=== PATIENT | male | born 1960 | race Caucasian/White ===

== ENCOUNTER 2016-05-12 17:42 | Emergency (ER) | payer BC ==
[2016-05-12] MEDS: PROPARACAINE 0.5% OPHTH DROPS 15 ML BTL BOTH EYES STA (18:21)
--- NOTE | 2016-05-12 18:21 | ED ---
Eye Problem HPI - General Chief complaint: Eye Problems Stated complaint: Trouble with his vision Time Seen by Provider: 05/12/16 18:01 Source: patient, RN notes reviewed Mode of arrival: ambulatory Limitations: no limitations - History of Present Illness Initial comments: Patient is a 56-year-old male presents emergency room for evaluation of blurriness of vision of b/l eyes. Patient states he woke up around 6:30 this morning and it appeared that the room was full of smoke. Patient denies any eye pain. Patient denies loss of vision. Patient states he scheduled an appointment with his primary care provider today and they did a glucose check and then sent him home. Patient states he got home and he still experiencing blurry vision so he thought he should be further evaluated. Patient states he recently had an eye exam at the end of last year with no issues. Patient does state he wears glasses. 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 Patient denies sitting in front of a computer all day or straining his eyes. Patient does state he has a family history of glaucoma. Patient denies any significant past medical history including high blood pressure or diabetes. Patient denies any trauma to his eyes. Patient states his eyes feel slightly irritated every time he blinks. Patient denies headache, dizziness or complete loss of vision. - Related Data Home Medications Medication Instructions Recorded Confirmed Ibuprofen [Motrin] 600 mg PO Q6HR PRN 05/12/16 05/12/16 Allergies Allergy/AdvReac Type Severity Reaction Status Date / Time No Known Allergies Allergy Verified 05/12/16 18:28 Review of Systems ROS Statement: Those systems with pertinent positive or pertinent negative responses have been documented in the HPI. ROS Other: All systems not noted in ROS Statement are negative. Past Medical History Past Medical History: No Reported History Additional Past Medical History / Comment(s): excema History of Any Multi-Drug Resistant Organisms: MRSA Date of last positivie culture/infection: 06/27/15 MDRO Source:: RIGHT HAND Past Surgical History: Appendectomy, Back Surgery Past Psychological History: No Psychological Hx Reported Smoking Status: Current every day smoker Past Alcohol Use History: None Reported Past Drug Use History: None Reported General Exam - General Exam Comments Initial Comments: Sitting in exam room in no acute distress. Limitations: no limitations General appearance: alert, in no apparent distress Head exam: Present: atraumatic, normocephalic, normal inspection Eye exam: Present: normal appearance, PERRL, EOMI Pupils: Present: normal accommodation Expanded Eyelids: Normal Inspection: Bilateral Pupils: Regular, Round: Bilateral, Reactive: Bilateral Sclera/Conjunctival: Injection: Bilateral Visual acuity (R) = 20/: 70 Visual acuity (L) = 20/: 70 With correction: Yes IOP (R) in mmH IOP (L) in mmH IOP measured with: [facility] ENT exam: Present: normal exam Neck exam: Present: normal inspection Respiratory exam: Present: normal lung sounds bilaterally. Absent: respiratory distress Cardiovascular Exam: Present: regular rate, normal rhythm, normal heart sounds Extremities exam: Present: normal inspection Back exam: Present: normal inspection Neurological exam: Present: alert, oriented X3, CN II-XII intact, normal gait Psychiatric exam: Present: normal affect, normal mood Skin exam: Present: warm, dry, intact, normal color. Absent: rash Course Vital Signs 05/12/16 17:48 Temperature 98.1 F Pulse Rate 100 Respiratory 20 Rate Blood Pressure 154/84 O2 Sat by Pulse 100 Oximetry Medical Decision Making - Medical Decision Making Patient is a 56-year-old male presents emergency room for evaluation of a blurriness of vision of bilateral eyes. IOP within normal limits of bilateral eyes. No uptake noted on evaluation with what slammed in the nursing dye. Visual acuity 20/[address] Miles. Dr. Miles spoke with Dr. Cabrera who came in and evaluated patient. Slitlamp examination significant for posterior cataracts (per Dr. Cabrera). Patient will follow-up with Dr. Cabrera tomorrow in his office. Return parameters discussed. Disposition Clinical Impression: Posterior subcapsular cataract, bilateral Disposition: HOME SELF-CARE Condition: Good Instructions: Cataracts (ED) Additional Instructions: Please follow-up with Dr. Cabrera tomorrow. If any new symptom arises or symptoms worsen return to ER as soon as possible. Referrals: Rosette Cabrera MD [STAFF PHYSICIAN] - 1-2 days Time of Disposition: 19:24
[2016-05-12 19:35] VITALS: BP 145/81; PULSE 95; RESP 18; TEMP 98
--- NOTE | 2016-05-13 07:24 | CONS ---
DATE OF CONSULTATION: 05/12/2016 CHIEF COMPLAINT: Blurred vision. HISTORY OF PRESENT ILLNESS: Mr. Dunlap is a 56-year-old male who presents with decreased vision that he noted this morning in both eyes. The patient denies eye pain, flashes, floaters, or other ophthalmic symptoms. The onset is gradual and moderate. Patient still has reasonably good vision; however, he states that it is blurrier today than it has been previously. REVIEW OF SYSTEMS: He denies headache, dizziness, or nausea and vomiting. PAST MEDICAL HISTORY: None. MEDICATIONS: Patient reports recent injections; however, he does not know what the medication was. ALLERGIES: No known drug allergies. PAST SURGICAL HISTORY: Appendectomy. SOCIAL HISTORY: Current every day smoker. Denies alcohol and drug use. OPHTHALMIC EXAM: Visual acuity is 20/70 in the right eye and 20/70 in the left eye. Intraocular pressure is 15 in both eyes. The lids are within normal limits in both eyes. Conjunctiva and sclera are white and within normal limits. Cornea is clear in both eyes. The anterior chambers are within normal limits. There is a significant posterior subcapsular cataract in both eyes. This is significant. Posterior examination is essentially within normal limits though limited due to the density of the cataract. ASSESSMENT AND PLAN: Posterior subcapsular cataract, both eyes. The patient has a significant cataract that likely has progressed quickly and is causing his symptoms. The cataracts are significant and there are no other notable ophthalmic findings that explain his poor vision. The patient would likely benefit from evaluation in the office and potentially from cataract surgery as an outpatient. The patient was given our office details then I recommend followup in the office for further evaluation of his cataracts. Thank you for allowing me to participate in this patient's care.
== END 2016-05-12 19:35 | disposition home or self-care (01) ==
LOC: EC 17:42
DX: H25.043 Posterior subcapsular polar age-related cataract, bilateral (principal); F17.200 Nicotine dependence, unspecified, uncomplicated; Z83.511 Family history of glaucoma
CPT/HCPCS: 99283

== ENCOUNTER 2016-08-08 19:24 | Emergency (ER) | payer BC ==
[2016-08-08 19:39] VITALS: BP 142/74; PULSE 94; RESP 18; TEMP 99.1
[2016-08-08] MEDS ORDERED: DIPH,PERTUS(ACELL)TETVAC-LF 0.5 ML VIAL IM ONE (19:43)
[2016-08-08] MEDS ORDERED: CEPHALEXIN 500MG STARTER PACK 4 CAP BTL PO STA (19:44)
--- NOTE | 2016-08-08 19:54 | XR ---
EXAMINATION TYPE: XR finger RT DATE OF EXAM: 08/08/2016 7:50 PM COMPARISON: NONE HISTORY: Timpson TECHNIQUE: 3 views FINDINGS: There is a metal fishhook foreign body in the soft tissues at the tip of the distal phalanx of the little finger right hand. There is no fracture. Joint spaces are normal. IMPRESSION: Timpson foreign body.
--- NOTE | 2016-08-08 20:13 | ED ---
General Adult HPI - General Chief complaint: Skin/Abscess/Foreign Body Stated complaint: fish hook in finger Time Seen by Provider: 08/08/16 19:40 Source: patient, RN notes reviewed, old records reviewed Mode of arrival: ambulatory Limitations: no limitations - History of Present Illness Initial comments: This is a pleasant 56-year-old male presenting to the emergency department with chief complaint of a fish hook being stuck in his right fifth finger pad. Patient reports that he has full range of motion. Patient reports that he tried to pull deficient consult was too painful. Patient states these had no idea when his left tetanus shot was.Patient denies any recent fever, chills, shortness of breath, chest pain, back pain, abdominal pain, nausea vomiting, numbness or tingling, dysuria or hematuria, constipation or diarrhea, headaches or visual changes, or any other current symptoms - Related Data Previous Rx's Medication Instructions Recorded Cephalexin [Keflex] 500 mg PO Q8HR #21 cap 08/08/16 Allergies Allergy/AdvReac Type Severity Reaction Status Date / Time No Known Allergies Allergy Verified 08/08/16 19:36 Review of Systems ROS Statement: Those systems with pertinent positive or pertinent negative responses have been documented in the HPI. ROS Other: All systems not noted in ROS Statement are negative. Past Medical History Past Medical History: No Reported History Additional Past Medical History / Comment(s): excema History of Any Multi-Drug Resistant Organisms: MRSA Date of last positivie culture/infection: 06/27/15 MDRO Source:: RIGHT HAND Past Surgical History: Appendectomy, Back Surgery Past Psychological History: No Psychological Hx Reported Smoking Status: Current every day smoker Past Alcohol Use History: None Reported Past Drug Use History: None Reported General Exam - General Exam Comments Initial Comments: Amalia 56-year-old male. No acute distress. Limitations: no limitations General appearance: alert, in no apparent distress Head exam: Present: atraumatic, normocephalic, normal inspection Eye exam: Present: normal appearance, PERRL, EOMI. Absent: scleral icterus, conjunctival injection, periorbital swelling ENT exam: Present: normal exam, mucous membranes moist Neck exam: Present: normal inspection. Absent: tenderness, meningismus, lymphadenopathy Respiratory exam: Present: normal lung sounds bilaterally. Absent: respiratory distress, wheezes, rales, rhonchi, stridor Cardiovascular Exam: Present: regular rate, normal rhythm, normal heart sounds. Absent: systolic murmur, diastolic murmur, rubs, gallop, clicks GI/Abdominal exam: Present: soft, normal bowel sounds. Absent: distended, tenderness, guarding, rebound, rigid Extremities exam: Present: normal inspection, full ROM, normal capillary refill , other (Patient has evidence of a fishhook in the distal pad of the fifth finger. Patient does have full range of motion.). Absent: tenderness, pedal edema, joint swelling, calf tenderness Back exam: Present: normal inspection Neurological exam: Present: alert, oriented X3, CN II-XII intact Psychiatric exam: Present: normal affect, normal mood Skin exam: Present: warm, dry, intact, normal color. Absent: rash Course Vital Signs 08/08/16 19:37 Temperature 99.1 F Pulse Rate 94 Respiratory 18 Rate Blood Pressure 142/74 O2 Sat by Pulse 98 Oximetry Procedures - Nerve Block Consent Obtained: verbal consent Local Anesthetic Used: Lidocaine 1% Amount of anesthesia used: 3 Side: right Nerve Blocks: digital (Fifth distal phalanx) Procedure Successful: Yes Patient Tolerated Procedure: well, no complications Medical Decision Making - Medical Decision Making This is a pleasant 56-year-old male presenting to the emergency department with chief complaint of a fish hook being stuck in his right fifth finger pad. Patient reports that he has full range of motion. Patient reports that he tried to pull deficient consult was too painful. Patient states these had no idea when his left tetanus shot was. Patient's wound was cleaned with Betadine. Patient was given a digital nerve block. The finger was anesthetized, and the fishhook was removed by pushing it further through the pad. I did remove the soo of the fishhook with pliers and then pulled the remaining part of her back out through the entry point. Patient was given is updated tetanus vaccination. Patient will be started on Keflex. The wound was thoroughly irrigated. Discussed monitoring any signs of infection. Patient agrees to treatment plan and will comply. Return parameters were discussed. - Radiology Data Radiology results: report reviewed Metal fishhook foreign body in the soft tissues of the distal phalanx of the little finger and the right hand. No fracture. Joint spaces are normal. Disposition Clinical Impression: Fish hook injury of finger of right hand Disposition: HOME SELF-CARE Condition: Good Instructions: Soft Tissue Foreign Body (ED) Additional Instructions: Monitor for any signs of infection, including redness swelling and drainage. A complete entire antibiotic prescription. Return to the emergency department if any alarming signs or symptoms occur. Prescriptions: Cephalexin [Keflex] 500 mg PO Q8HR #21 cap Referrals: Lawrence Layne MD [Primary Care Provider] - 1-2 days Time of Disposition: 20:13
== END 2016-08-08 20:18 | disposition home or self-care (01) ==
LOC: EC 19:24
DX: S60.456A Superficial foreign body of right little finger, initial encounter (principal); Z23 Encounter for immunization; F17.200 Nicotine dependence, unspecified, uncomplicated; W22.8XXA Striking against or struck by other objects, initial encounter
CPT/HCPCS: 10120; 90471; 90715; 99284

== ENCOUNTER 2017-05-03 06:57 | Emergency (ER) | payer BC, OTHER ==
--- NOTE | 2017-05-03 08:23 | ED ---
Upper Extremity HPI - General Chief Complaint: Extremity Injury, Upper Stated Complaint: IHS-wrist injury Time Seen by Provider: 05/03/17 08:10 Source: patient, RN notes reviewed Mode of arrival: ambulatory Limitations: no limitations - History of Present Illness Initial Comments: This is a 56-year-old male presents emergency Department chief complaint left wrist pain. 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 He states it's about shoulder height and he has to pull to the left. Patient states that he felt that he sprained his wrist at the time finish out her shift but the symptoms are getting worse. He complains of pain along the ulnar aspect. He denies any paresthesias. He is [id number]. Patient states she's never had any issues like this in the past. He does state that do takes a great deal of strength to move some brakes. Patient states that the pain is worse with any movement and is better with support - Related Data Home Medications Medication Instructions Recorded Confirmed Ibuprofen [Motrin Ib] 600 mg PO TID PRN 05/03/17 05/03/17 Previous Rx's Medication Instructions Recorded Acetaminophen-Codeine 300-30mg 1 tab PO Q4H PRN #20 tablet 05/03/17 [Tylenol #3] Ibuprofen [Motrin] 600 mg PO Q8HR PRN #30 tab 05/03/17 Allergies Allergy/AdvReac Type Severity Reaction Status Date / Time No Known Allergies Allergy Verified 05/03/17 07:52 Review of Systems ROS Statement: Those systems with pertinent positive or pertinent negative responses have been documented in the HPI. ROS Other: All systems not noted in ROS Statement are negative. Past Medical History Past Medical History: No Reported History Additional Past Medical History / Comment(s): excema History of Any Multi-Drug Resistant Organisms: MRSA Date of last positivie culture/infection: 09/23/16 MDRO Source:: ARM Past Surgical History: Appendectomy, Back Surgery Past Psychological History: No Psychological Hx Reported Smoking Status: Current every day smoker Past Alcohol Use History: None Reported Past Drug Use History: None Reported General Exam Limitations: no limitations General appearance: alert, in no apparent distress Head exam: Present: atraumatic, normocephalic, normal inspection Eye exam: Present: normal appearance, PERRL, EOMI. Absent: scleral icterus, conjunctival injection, periorbital swelling Respiratory exam: Present: normal lung sounds bilaterally. Absent: respiratory distress, wheezes, rales, rhonchi, stridor Cardiovascular Exam: Present: regular rate, normal rhythm, normal heart sounds. Absent: systolic murmur, diastolic murmur, rubs, gallop, clicks Extremities exam: Present: other (Left wrist there is tenderness over the ulnar aspect, pain with ulnar deviation, pronation supination along with flexion extension neurovascular intact there is no tenderness in the proximal forearm) Neurological exam: Present: reflexes normal. Absent: motor sensory deficit Skin exam: Present: warm, dry, intact, normal color, rash (Eczema type rash noted on the hands) Course Vital Signs 05/03/17 07:07 Temperature 97.4 F L Pulse Rate 77 Respiratory 17 Rate Blood Pressure 138/82 O2 Sat by Pulse 100 Oximetry Procedures - Orthopedic Splinting/Casting Injury #1 Side: left Upper Extremity Injury Location: short arm, wrist Upper Extremity Immobilizer: volar splint, synthetic pre-padded splint Additional Comments: Neurovascular intact before and after procedure Medical Decision Making - Medical Decision Making 56-year-old male presented for left wrist pain. X-rays reviewed show no acute fracture. I do have concern for ligamentous injury. Patient was splinted in an OCL splint in neutral position he'll be follow-up with orthopedics he was discharged with anti-inflammatories and pain medication. Return parameters were discussed Disposition Clinical Impression: Left wrist sprain, Injury of ulnar collateral ligament of left wrist Disposition: HOME SELF-CARE Condition: Stable Instructions: Wrist Injury (ED) Additional Instructions: Please return to the Emergency Department if symptoms worsen or any other concerns. Prescriptions: Acetaminophen-Codeine 300-30mg [Tylenol #3] 1 tab PO Q4H PRN #20 tablet PRN Reason: pain Ibuprofen [Motrin] 600 mg PO Q8HR PRN #30 tab PRN Reason: Pain Referrals: Lawrence Layne MD [Primary Care Provider] - 1-2 days Time of Disposition: 09:13
[2017-05-03 09:20] VITALS: BP 120/76; PULSE 87; RESP 16; TEMP 97.5
--- NOTE | 2017-05-03 09:26 | XR ---
EXAMINATION TYPE: XR wrist complete LT DATE OF EXAM: 05/03/2017 CLINICAL HISTORY: Left wrist pain TECHNIQUE: Frontal, lateral and oblique images of the left wrist are obtained. COMPARISON: None FINDINGS: There is no acute fracture/dislocation evident in the left wrist. There is advanced arthro cecily of the first metacarpal phalangeal joint demonstrated is bony proliferation, opposing surface s clerosis and joint space narrowing.. The overlying soft tissue appears unremarkable. IMPRESSION: 1. There is no acute fracture or dislocation in the left wrist. 2. Advanced arthropathy of the first metacarpal phalangeal joint likely related to osteoarthrosis.
== END 2017-05-03 09:25 | disposition home or self-care (01) ==
LOC: EC 06:57
DX: S63.502A Unspecified sprain of left wrist, initial encounter (principal); R21 Rash and other nonspecific skin eruption; F17.200 Nicotine dependence, unspecified, uncomplicated; Z86.14 Personal history of Methicillin resistant Staphylococcus aureus infection; X50.0XXA Overexertion from strenuous movement or load, initial encounter; Y93.89 Activity, other specified; Y92.69 Other specified industrial and construction area as the place of occurrence of the external cause; Y99.0 Civilian activity done for income or pay
CPT/HCPCS: 29125; 99283

== ENCOUNTER → 2021-05-21 | Outpatient (CLI) | payer BC ==
--- NOTE | 2021-05-21 13:33 | CT ---
EXAMINATION TYPE: CT abdomen pelvis w con DATE OF EXAM: 05/21/2021 COMPARISON: None HISTORY: micro hematuria CT DLP: 1879 mGycm Automated exposure control for dose reduction was used. TECHNIQUE: Helical acquisition of images from the lung bases through the pelvis have been completed. CONTRAST: Performed with Oral Contrast and with IV Contrast, patient injected with 100 mL of Isovue 300. FINDINGS: LUNG BASES: No significant abnormality is appreciated. AORTA: Atheromatous changes are present extending into the iliac vasculature. LIVER/GB: Low density within the liver likely due to hepatic steatosis, gallbladder shows a dependent calculus in the neck region PANCREAS: No significant abnormality is seen. SPLEEN: No significant abnormality is seen. ADRENALS: No significant abnormality is seen. KIDNEYS: Probable cortical cyst present at the midpole of the right kidney measuring 1 cm. REPRODUCTIVE ORGANS: Prostate is enlarged and shows associated calcification BOWEL: Abnormal thickening of the sigmoid colon is present, there is some surrounding inflammatory c hange, some fat apparently insinuates itself adjacent to the superior margin of the sigmoid colon, co ernesto image 52, axial image 72 is scattered diverticular changes. FREE AIR: No Free Air visible. ASCITES: None visible. PELVIC ADENOPATHY: None visualized. RETROPERITONEAL ADENOPATHY: No Retroperitoneal Adenopathy visible. URINARY BLADDER: Air urine level is present within the urinary bladder, correlate for history of ins trumentation. OSSEOUS STRUCTURES: No significant abnormality is seen. IMPRESSION: AIR IS PRESENT WITHIN THE URINARY BLADDER IS DESCRIBED, THERE IS PROSTATE ENLARGEMENT. CORRELATE FOR DIVERTICULITIS, FOLLOW-UP IS RECOMMENDED TO EXCLUDE UNDERLYING COLONIC MASS, CONSIDER BOWEL SURVEILLA NCE IF THIS HAS NOT BEEN PERFORMED. DIVERTICULOSIS. Cholelithiasis. Hepatic steatosis.
== END | disposition home or self-care (01) ==
LOC: RADCTMAIN 09:58
PROVIDERS: ATTEND Urology
DX: N40.0 Benign prostatic hyperplasia without lower urinary tract symptoms (principal); K57.90 Diverticulosis of intestine, part unspecified, without perforation or abscess without bleeding; K80.20 Calculus of gallbladder without cholecystitis without obstruction; K76.0 Fatty (change of) liver, not elsewhere classified
CPT/HCPCS: 74177; Q9967

== ENCOUNTER → 2021-06-27 | Outpatient (CLI) | payer BC ==
[2021-06-27 14:03] LABS: HCT 46.7 % (39.6-50.0); HGB 14.8 g/dL (13.0-17.0); MCH 29.3 pg (27.0-32.0); MCHC 31.7 g/dL (32.0-37.0); MCV 92.5 fL (80.0-97.0); Mean Platelet Volume 8.8 fL (9.5-12.2); NRBC Per 100 WBC 0 /100 WBCS (0.0-0.0); Platelet Count 398 X 10*3/uL (140-440); RBC 5.05 X 10*6/uL (4.40-5.60); RDW 13.8 % (11.5-14.5)
[2021-06-27 14:34] LABS: Anion Gap 13.5 mmol/L (10.00-18.00); Carbon Dioxide 22.5 mmol/L (20.0-27.5); Potassium 4.3 mmol/L (3.5-5.5)
== END | disposition home or self-care (01) ==
LOC: LABPAT 07:02
PROVIDERS: ATTEND Surgery
DX: Z01.812 Encounter for preprocedural laboratory examination (principal); L98.8 Other specified disorders of the skin and subcutaneous tissue
CPT/HCPCS: 36415; 80051; 85027; 93005

== ENCOUNTER 2021-07-03 11:49 | Day surgery (SDC) | payer BC ==
[2021-07-01 10:46] VITALS: BMI 29.9
[~2021-07-03 11:49] MED LIST: LACTATED RINGERS 1,000 ML IV SCH; LIDOCAINE 1% (10MG/ML) FOR IV START INTRADERMA PRN
[2021-07-03 12:37] VITALS: TEMP 97.1
[2021-07-03] MEDS ORDERED: PROPOFOL 10 MG/ML 20 ML VIAL IV ONE (13:16)
[2021-07-03] MEDS ORDERED: LIDOCAINE 2% INJ 20 MG/ML (2 ML VIAL) ONE (13:16)
--- NOTE | 2021-07-03 13:37 | P.GSHP ---
History of Present Illness H&P Date: 07/03/21 Chief Complaint: Colovesical fistula 61-year-old male here today for endoscopy. Please refer to recent history and physical dictated in the office record and also for tomorrow's surgery date. Patient with recent findings of colovesical fistula. Being scheduled for low anterior resection. No prior colonoscopies. Past Medical History Past Medical History: No Reported History Additional Past Medical History / Comment(s): ECZEMA. 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- POSSIBLE HOLE IN BLADDER-POSSIBLE FISTULA History of Any Multi-Drug Resistant Organisms: MRSA Date of last positivie culture/infection: 09/23/16 MDRO Source:: ARM Past Surgical History: Appendectomy, Back Surgery Additional Past Surgical History / Comment(s): CYSTOSCOPY, BILAT CATARACTS REMOVED WITH LENS IMPLANTS, BONE CHIP REMOVED FROM LT ELBOW Past Anesthesia/Blood Transfusion Reactions: No Reported Reaction Past Psychological History: No Psychological Hx Reported Past Alcohol Use History: None Reported Past Drug Use History: None Reported - Past Family History Mother Family Medical History: No Reported History Medications and Allergies Home Medications Medication Instructions Recorded Confirmed Type Acetaminophen [Tylenol Extra 1,000 mg PO Q8HR PRN 07/01/21 07/03/21 History Strength] Etodolac [Lodine] 200 mg PO DAILY 07/01/21 07/03/21 History Allergies Allergy/AdvReac Type Severity Reaction Status Date / Time No Known Allergies Allergy Verified 07/03/21 12:25 Surgical - Exam Vital Signs Temp Pulse Resp BP Pulse Ox 97.1 F L 118 H 16 109/74 97 07/03/21 12:35 07/03/21 12:35 07/03/21 12:35 07/03/21 12:35 07/03/21 12:35 Physical exam: General: Well-developed, well-nourished HEENT: Normocephalic, sclerae nonicteric Abdomen: Nontender, nondistended Extremities: No edema Neuro: Alert and oriented Assessment and Plan (1) Colovesical fistula Narrative/Plan: Will proceed with colonoscopy at this time. Current Visit: Yes Status: Acute Code(s): N32.1 - VESICOINTESTINAL FISTULA SNOMED Code(s): 06005925
--- NOTE | 2021-07-03 13:39 | P.PCN ---
Date of Procedure: 07/03/21 Procedure(s) Performed: PREOPERATIVE DIAGNOSIS: Colovesical fistula, diverticulitis POSTOPERATIVE DIAGNOSIS: Sigmoid colon polyp, diverticulitis PROCEDURE: Colonoscopy with snare polypectomy ANESTHESIA: MAC SURGEON: Anthony Celeste M.D. SPECIMENS: Polyp ENDOSCOPIC PROCEDURE: The patient was placed on the endoscopy table in the left decubitus position. The Olympus colonoscope was inserted into the anus and passed under direct visualization to the base of the cecum. The appendiceal orifice was visualized. From that point the scope was slowly withdrawn inspecting all surfaces carefully. There were no neoplastic inflammatory or polypoid lesions throughout the cecum, ascending, transverse, and descending colon. At 45 cm in the proximal sigmoid or distal descending colon there was a small polyp that was removed using the snare with cautery technique. In the sigmoid colon there was significant diverticulosis with tortuosity erythema and luminal stiffness consistent with diverticulitis. This was likely the site of recent fistulization. The rectum appeared normal. Digital rectal examination was normal. The patient was taken to the recovery room in stable condition per anesthesia guidelines. RECOMMENDATIONS: Await biopsy results. Proceed with low anterior resection tomorrow for colovesical fistula.
[2021-07-03 13:42] VITALS: BP 110/64; PULSE 105; RESP 18
== END 2021-07-03 14:17 | disposition home or self-care (01) ==
LOC: ORWHC2ENDO 11:49
PROVIDERS: ATTEND Surgery
DX: D12.5 Benign neoplasm of sigmoid colon (principal); K57.32 Diverticulitis of large intestine without perforation or abscess without bleeding; N32.1 Vesicointestinal fistula; L30.9 Dermatitis, unspecified; Z86.14 Personal history of Methicillin resistant Staphylococcus aureus infection; Z90.49 Acquired absence of other specified parts of digestive tract; Z98.890 Other specified postprocedural states; Z79.1 Long term (current) use of non-steroidal anti-inflammatories (NSAID); Z87.891 Personal history of nicotine dependence; Z98.42 Cataract extraction status, left eye; Z98.41 Cataract extraction status, right eye; Z96.1 Presence of intraocular lens
CPT/HCPCS: 88305; 45385; J2704; J2001

== ENCOUNTER 2021-07-04 09:40 | Inpatient (IN) | payer BC ==
[~2021-07-04 09:40] MED LIST changes: +ACETAMINOPHEN TAB 500 MG TAB PO PRN; +ALVIMOPAN 12 MG CAPSULE PO PRN; +DEXAMETHASONE SOD PHOSPHATE 4 MG/ML 1 ML VIAL IV ONE; +HEPARIN SODIUM,PORCINE/PF 5,000 UNIT/0.5 ML SYRINGE SQ PRN; +HYDROmorphone 0.5 MG/0.5 ML SYRINGE IVP PRN; -LACTATED RINGERS 1,000 ML IV SCH; -LIDOCAINE 1% (10MG/ML) FOR IV START INTRADERMA PRN; +MIDAZOLAM 2 MG/2 ML VIAL IV PRN; +ONDANSETRON 4 MG/2 ML VIAL IVP ONE; +SCOPOLAMINE 1 MG/72 HR PATCH TRANSDERM ONE; +metroNIDAZOLE-NS PMX 500 MG in SALINE 1 100ML.BAG IVPB PRN
[2021-07-04] MEDS: LACTATED RINGERS 1,000 ML IV SCH (10:50)
[2021-07-04 11:01] LABS: Partial Thromboplastin Time 27.5 sec (22.0-30.0); Prothrombin Time 11.1 sec (9.0-12.0)
[2021-07-04] MEDS ORDERED: fentaNYL (PF) 50 MCG/ML 2 ML AMP IVP ONE (11:20)
[2021-07-04] MEDS ORDERED: MIDAZOLAM 2 MG/2 ML VIAL IVP ONE (11:20)
[2021-07-04] MEDS ORDERED: diphenhydrAMINE 50 MG/ML 1 ML VIAL IVP PRN (12:06)
[2021-07-04] MEDS ORDERED: MORPHINE SULFATE 2 MG/ML SYRINGE IVP PRN (12:06)
[2021-07-04] MEDS ORDERED: NALOXONE 0.4 MG/ML 1 ML VIAL IV PRN (12:06)
[2021-07-04] MEDS ORDERED: NALBUPHINE 10 MG/ML (1 ML AMP) IV PRN (12:06)
--- NOTE | 2021-07-04 12:12 | P.ANPRN ---
Procedure Note - Anesthesia - Epidural/Spinal Epidural Continuous Time Out Performed: Yes Date of Procedure: 07/04/21 Procedure Start Time: 11:19 Procedure Stop Time: 11:27 Location of Patient: PreOp Indication: Acute Post-Operative Pain, Requested by Surgeon (deanne) Sedation Type: Sedate with meaningful contact maintained Preparation: Sterile Dressing Number of Attempts: 1 Position: Sitting Catheter Depth at Skin (cm): 8 Catheter: Indwelling Needle Guage: 18 Injectate: Test Dose Lidocaine1.5% w/1:200,000 epi (5cc) Narrative: sterile protocol. 1 attempt. negative test dose. Patient tolerated procedure well Blood Aspirated: No Pain Paresthesia on Injection Noted: No Events: Uneventful and Well Tolerated
[2021-07-04] MEDS ORDERED: LACTATED RINGERS 1,000 ML IV ONE ×3 (13:30→14:58)
[2021-07-04] MEDS ORDERED: METOCLOPRAMIDE 5 MG/ML 2 ML VIAL IVP PRN (15:46)
[2021-07-04] MEDS: ROPIVACAINE 250 MG, fentaNYL (PF) 1,250 MCG in SODIUM CHLORIDE 0.9% 175 ML EPIDURAL PRN (15:55)
--- NOTE | 2021-07-04 15:56 | P.OP ---
Date of Procedure: 07/04/21 Procedure(s) Performed: PREOPERATIVE DIAGNOSIS: Colovesical fistula POSTOPERATIVE DIAGNOSIS: Same, active diverticulitis PROCEDURE: Low anterior sigmoid resection, mobilization splenic flexure, partial omentectomy SURGEON: Roula EBL: 100 mL ANESTHESIA: General COMPLICATIONS: None OPERATIVE PROCEDURE: Patient place in the operative table in the supine position. The patient was placed under general anesthesia. The patient was then placed in lithotomy. The abdomen was prepped and draped in usual sterile fashion. A vertical incision was made extending from the infraumbilical location to the suprapubic location. The fascia was divided as well. The Bookwalter retractor was utilized. The proximal sigmoid colon was markedly inflamed for a distance of approximately 15-20 cm. This was mobilized medially. It was quickly realized that the bowel proximal to the area of active diverticulitis would not reach the sacral promontory without mobilization of the splenic flexure. The descending colon was mobilized. Incision was lengthened to the subxiphoid location. The patient had a very large torso that required significant incision length in order to mobilize the splenic flexure up properly. This was done using a combination of blunt dissection electrocautery and the LigaSure device. Once we had adequate length the colon was divided immediately proximal to the thickened segment and a longitudinal manner using electrocautery. A 29 EEA anvil was advanced into the lumen of the sigmoid colon and milked proximally. The bowel was then divided using a linear 75 stapler and the anvil was brought out adjacent to the staple line. A 3-0 silk pursestring suture was placed around the anvil at that location. The mesentery was divided using the LigaSure device. Dissection took place down to the proximal rectum where the tenia was noted to splay out. The proximal rectum was divided using t he contour stapler. The specimen was passed off the field at that point. A small area of bleeding along the staple line was controlled laterally using a [id number] 3-0 GI silk suture. No signs of bleeding at either staple line was noted after irrigation. The EEA stapler was then inserted into the anus and brought up to the staple line. The obturator was brought out just anterior to the staple line. The 2 portions of the stapler were connected to one another and subsequently tightened and fired. The bowel was clamped proximal to the anastomosis. The rigid sigmoidoscope was utilized to fill the anastomotic site nicely with air. There was saline in the pelvis at this time. No evidence of leak was seen. The abdomen was irrigated with saline. No bleeding was seen. I did remove a portion of the omentum that was somewhat ischemic appearing were it had been dissected away from the distal transverse colon. The anastomosis was inspected and appeared quite viable. There was no tension on the anastomosis at this point. The liver, stomach, visualized colon, and small bowel appeared normal. The midline fascia was then reapproximated using 3 separate double- stranded #1 PDS sutures. The subcutaneous tissues were closed using 3-0 Vicryl sutures. The skin was then closed using tala. Sterile dressings were then applied. DISPOSITION: Stable to recovery room
[2021-07-04] MEDS: PIPERACILLIN-TAZOBACTAM 3.375 GM in SODIUM CHLORIDE 0.9% 100 ML IVPB SCH (17:58)
[2021-07-04] MEDS: D5-0.45% NACL WITH KCL 20MEQ/L 1,000 ML IV SCH (17:58)
[2021-07-04] MEDS: HEPARIN SODIUM,PORCINE/PF 5,000 UNIT/0.5 ML SYRINGE SQ SCH (20:41)
[2021-07-04] MEDS: FAMOTIDINE 20 MG/2 ML VIAL IV SCH (20:42)
[2021-07-05] MEDS: PIPERACILLIN-TAZOBACTAM 3.375 GM in SODIUM CHLORIDE 0.9% 100 ML IVPB SCH ×3 (01:39→17:57)
[2021-07-05] MEDS: D5-0.45% NACL WITH KCL 20MEQ/L 1,000 ML IV SCH ×3 (04:56→17:57)
[2021-07-05] MEDS: HEPARIN SODIUM,PORCINE/PF 5,000 UNIT/0.5 ML SYRINGE SQ SCH ×3 (04:56→21:19)
[2021-07-05] MEDS: LACTATED RINGERS 1,000 ML IV SCH (08:05)
[2021-07-05] MEDS: ALVIMOPAN 12 MG CAPSULE PO SCH ×2 (08:12→21:18)
[2021-07-05] MEDS: FAMOTIDINE 20 MG/2 ML VIAL IV SCH ×2 (08:13→23:53)
[2021-07-05 08:39] LABS: Basophils # (A) 0.02 X 10*3/uL (0.00-0.10); Basophils % (A) 0.1 %; Eosinophils # (A) 0 X 10*3/uL (0.04-0.35); Eosinophils % (A) 0 %; HGB 13.4 g/dL (13.0-17.0); Immature Grans, Automated 0.5 %; Lymphocytes # (A) 0.97 X 10*3/uL (0.90-5.00); Lymphocytes % (A) 6.3 %; MCH 29.7 pg (27.0-32.0); MCHC 31.9 g/dL (32.0-37.0); MCV 93.1 fL (80.0-97.0); Mean Platelet Volume 9.2 fL (9.5-12.2); Monocytes # (A) 1.35 X 10*3/uL (0.20-1.00); Monocytes % (A) 8.8 %; NRBC Per 100 WBC 0 /100 WBCS (0.0-0.0); Neutrophils # (A) 12.87 X 10*3/uL (1.80-7.70); Neutrophils % (A) 84.3 %; Platelet Count 364 X 10*3/uL (140-440); RBC 4.51 X 10*6/uL (4.40-5.60); RDW 13.7 % (11.5-14.5); WBC 15.28 X 10*3/uL (4.50-10.00)
[2021-07-05 09:02] LABS: African American GFR (CKD) 68.3 (60.0-200.0); Anion Gap 9.7 mmol/L (10.00-18.00); BUN/Creat Ratio 9.92 Ratio (12.00-20.00); Blood Urea Nitrogen 12.9 mg/dL (9.0-27.0); Calcium 9.2 mg/dL (8.7-10.3); Carbon Dioxide 24.3 mmol/L (20.0-27.5); Non-African American GFR(CKD) 58.9 (60.0-200.0); Potassium 4.5 mmol/L (3.5-5.5)
--- NOTE | 2021-07-05 09:14 | P.PN ---
Progress Note - Text Progress Note Date: 07/05/21 (903) Anesthesia Postop day #1 Status post low anterior resection with epidural day #2 Patient seen and examined. Doing well without complaint. VAS 0 out of 10. No nausea vomiting or pruritus. Ropivacaine 0.1% with fentanyl 5 mcg/mL at 10 mL per hour . Objective: Vital signs reviewed. Stable Lungs: Good chest excursion Abdomen: Appears nondistended Other: Epidural Site Intact without induration. Dressing intact Neuro: No apparent motor block. Sensory within normal limits. Assessment: Status post low anterior resection postop day 1 Plan: Continue current care with your medical management. Anticipate reevaluation tomorrow.
--- NOTE | 2021-07-05 11:31 | P.CONS ---
History of Present Illness - Reason for Consult Consult date: 07/05/21 Medical management - Chief Complaint Status post colon resection - History of Present Illness Patient is a 61-year-old male without significant past medical history, previous history of smoking and recently diagnosed colovesical fistula was admitted to the hospital for elective surgery. Patient underwent low anterior sigmoid resection, mobilization of splenic flexure and partial omentectomy. Recent CT of abdomen pelvis on 05/21/2021 showed areas present within the urinary bladder. There is prostate enlargement. Correlate for diverticulitis. Cholelithiasis and hepatic steatosis. Patient is s/p surgery and currently able to get up from the bed. No complaints of chest pain or shortness of breath. Patient is still on epidural. No fever no chills. No cough or sputum production.. No leg swelling. Denied any dizziness or lightheadedness. No nausea or vomiting. Laboratory data showed WBC 15.28 hemoglobin 13.4 and platelets 364 Sodium 136 potassium 4.5 chloride 102 bicarb is 24.3 BUN 12.9 creatinine 1.3 calcium 9.2. Review of Systems Constitutional: Patient denies any fever or chills . No generalized weakness or weight loss. Abdomen: Patient denied nausea vomiting and diarrhea and abdominal pain. Cardiovascular: Patient denies any chest pain or short of breath no palpitations. Respiratory: patient denied any cough or sputum production. No shortness of breath Neurologic: Patient denied any numbness or tingling headache. Musculoskeletal: Patient denies any complaints of joint swelling or deformity. Skin: Negative Psychiatric: Negative Endocrine: No heat or cold intolerance. No recent weight gain. Genitourinary: No dysuria or hematuria. All other 14 point ROS negative except the above Past Medical History Past Medical History: No Reported History Additional Past Medical History / Comment(s): ECZEMA. 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 Past Anesthesia/Blood Transfusion Reactions: No Reported Reaction Past Psychological History: No Psychological Hx Reported Smoking Status: Former smoker Past Alcohol Use History: None Reported Additional Past Alcohol Use History / Comment(s): QUIT SMOKING 2017 Past Drug Use History: None Reported - Past Family History Mother Family Medical History: No Reported History Medications and Allergies Home Medications Medication Instructions Recorded Confirmed Type Acetaminophen [Tylenol Extra 1,000 mg PO Q8HR PRN 07/01/21 07/04/21 History Strength] Etodolac [Lodine] 200 mg PO DAILY 07/01/21 07/04/21 History Allergies Allergy/AdvReac Type Severity Reaction Status Date / Time No Known Allergies Allergy Verified 07/04/21 10:05 Physical Exam Vitals: Vital Signs Temp Pulse Pulse Pulse Resp BP Pulse Ox 07/05/21 08:00 79 18 113/66 99 07/05/21 01:09 97.8 F 95 16 96/63 97 07/04/21 19:58 97.6 F 84 18 104/67 99 07/04/21 17:53 98.1 F 69 19 97/59 96 07/04/21 16:45 82 16 102/64 98 07/04/21 16:32 80 16 126/68 100 07/04/21 16:17 64 16 84/51 97 07/04/21 16:03 66 14 85/50 96 07/04/21 15:48 97.5 F L 72 16 84/53 93 L 07/04/21 11:40 80 16 110/63 99 Intake and Output 07/04/21 07/05/21 07/05/21 22:59 06:59 14:59 Intake Total 550 Output Total 255 825 Balance 295 -825 Intake: IV 550 Output: Urine 155 825 Estimated Blood Loss 100 Other: Voiding Method Indwelling Catheter Indwelling Catheter Weight 106 kg PHYSICAL EXAMINATION: Patient is lying in the bed comfortably, no acute distress, awake alert and oriented.. HEENT: Normocephalic. Neck is supple. Pupils reactive. Nostrils clear. Oral cavity is moist. Neck reveals no JVD, carotid bruits, or thyromegaly. CHEST EXAMINATION: Trachea is central. Symmetrical expansion. Lung frazier clear to auscultation and percussion. CARDIAC: Normal S1, S2 with no gallops. No murmurs ABDOMEN: Soft. Bowel sounds diminished. Surgical site is bandaged.. No organomegaly. No abdominal bruits. Extremities: reveal no edema. No clubbing or cyanosis Neurologically awake, alert, oriented x3 with well-coordinated movements. No focal deficits noted Skin: No rash or skin lesions. Psychiatric: Cooperative. Nonsuicidal Musculoskeletal: No joint swelling or deformity. Normal range of motion. Results CBC & Chem 7: 07/05/21 06:22 07/05/21 06:22 Labs: Abnormal Lab Results - Last 24 Hours (Table) 07/05/21 07/05/21 Range/Units 06:22 06:22 WBC 15.28 H (4.50-10.00) X 10*3/uL MCHC 31.9 L (32.0-37.0) g/dL MPV 9.2 L (9.5-12.2) fL Immature Gran # 0.07 H (0.00-0.04) X 10*3/uL Neutrophils # 12.87 H (1.80-7.70) X 10*3/uL Monocytes # 1.35 H (0.20-1.00) X 10*3/uL Eosinophils # 0 L (0.04-0.35) X 10*3/uL Anion Gap 9.70 L (10.00-18.00) mmol/L Est GFR (CKD-EPI)NonAf 58.9 L (60.0-200.0) BUN/Creatinine Ratio 9.92 L (12.00-20.00) Ratio Glucose 142 H (70-110) mg/dL Assessment and Plan Assessment: Status post low anterior sigmoid resection and partial omentectomy Recently diagnosed colovesical fistula. Leukocytosis likely due to post operative inflammatory reaction. Previous history of smoking DVT prophylaxis. Plan: Patient will be continued IV hydration, pain management and bowel regimen. Encourage incentive spirometry and ambulation. On antibiotics in the form of Zosyn. PT OT will be consulted and follow-up closely. Patient was started on liquid diet and advance as tolerated. We will continue to follow and further recommendations based on the clinical course. Thank you for your consult. Time with Patient: Greater than 30
[2021-07-05] MEDS: ROPIVACAINE 250 MG, fentaNYL (PF) 1,250 MCG in SODIUM CHLORIDE 0.9% 175 ML EPIDURAL PRN (12:09)
--- NOTE | 2021-07-05 12:31 | P.PN ---
Subjective Progress Note Date: 07/05/21 CHIEF COMPLAINT: Diverticulitis HISTORY OF PRESENT ILLNESS: The patient is a 61-year-old male status post colovesical fistula repair. He feels well. He is POD 1.He is ambulating. He is using his incentive spirometer 10x/hr. "I feel good!" He is tolerating liquid diet. ROS: No reports of nausea and vomiting. No bowel movements. No fevers or chills. No new chest pain. No productive sputum PHYSICAL EXAM: VITAL SIGNS: Reviewed CONSTITUTIONAL: Well developed and in no acute distress. EYES: Conjuctivae without sclera icterus. Extraocular movements grossly intact. HEAD, EARS, NOSE, THROAT: Moist buccal mucosa. Head is atraumatic, normocephalic. Hears conversational speech. No nasal drainage. RESPIRATORY: Non-labored respirations and equal bilateral excursions. CARDIOVASCULAR: Palpable 2+ radial pulses. ABDOMEN: Mild shadowing at bottom 1/4 of dressing Optifoam. No cellulitis. : Avila present with clear urine. MUSCULOSKELETAL: No gross deformity of the lower extremities noted. No clubbing. No cyanosis. SKIN: Good skin turgor. Well perfused. NEUROLOGIC: Cranial nerves II through XII grossly intact. No focal or lateralizing signs. PSYCH: Appropriate affect. Alert and oriented to person, place and time. CLINICAL LABS: Reviewed. WBC elevated over 15,000 expected post-surgical stress response. ASSESSMENT: 1. Colovesical fistula PLAN: 1. Continue clear liquid diet 2. Continue epidural 3. Monitor WBC and Hgb Objective - Vital Signs Vital signs: Vital Signs Temp 97.8 F 07/05/21 01:09 Pulse 79 07/05/21 08:00 Resp 18 07/05/21 08:00 BP 113/66 07/05/21 08:00 Pulse Ox 99 07/05/21 08:00 Intake & Output 07/04/21 07/05/21 07/05/21 18:59 06:59 18:59 Intake Total 4100 7.5 Output Total 255 825 Balance 3845 -825 7.5 Weight 106 kg Intake: IV 4100 Intake, IV Titration 7.5 Amount Ropivacaine 250 mg 7.5 fentaNYL (PF) 1,250 mcg In Sodium Chloride 0.9% 175 ml @ Per Protocol EPIDURAL .Q0M PRN Rx#: [id number] Output: Urine 155 825 Estimated Blood Loss 100 Other: Voiding Method Indwelling Catheter Indwelling Catheter - Labs CBC & Chem 7: 07/05/21 06:22 07/05/21 06:22 Labs: Abnormal Lab Results - Last 24 Hours (Table) 07/05/21 07/05/21 Range/Units 06:22 06:22 WBC 15.28 H (4.50-10.00) X 10*3/uL MCHC 31.9 L (32.0-37.0) g/dL MPV 9.2 L (9.5-12.2) fL Immature Gran # 0.07 H (0.00-0.04) X 10*3/uL Neutrophils # 12.87 H (1.80-7.70) X 10*3/uL Monocytes # 1.35 H (0.20-1.00) X 10*3/uL Eosinophils # 0 L (0.04-0.35) X 10*3/uL Anion Gap 9.70 L (10.00-18.00) mmol/L Est GFR (CKD-EPI)NonAf 58.9 L (60.0-200.0) BUN/Creatinine Ratio 9.92 L (12.00-20.00) Ratio Glucose 142 H (70-110) mg/dL
[2021-07-06] MEDS: PIPERACILLIN-TAZOBACTAM 3.375 GM in SODIUM CHLORIDE 0.9% 100 ML IVPB SCH ×3 (04:49→17:14)
[2021-07-06] MEDS: HEPARIN SODIUM,PORCINE/PF 5,000 UNIT/0.5 ML SYRINGE SQ SCH ×3 (04:50→20:27)
[2021-07-06] MEDS: D5-0.45% NACL WITH KCL 20MEQ/L 1,000 ML IV SCH ×4 (05:36→20:31)
[2021-07-06] MEDS: LACTATED RINGERS 1,000 ML IV SCH (07:16)
[2021-07-06] MEDS: ALVIMOPAN 12 MG CAPSULE PO SCH ×2 (08:21→20:28)
[2021-07-06] MEDS: FAMOTIDINE 20 MG/2 ML VIAL IV SCH ×2 (08:21→20:28)
[2021-07-06] MEDS: ROPIVACAINE 250 MG, fentaNYL (PF) 1,250 MCG in SODIUM CHLORIDE 0.9% 175 ML EPIDURAL PRN (08:22)
[2021-07-06] MEDS: ONDANSETRON 4 MG/2 ML VIAL IVP PRN (08:30)
--- NOTE | 2021-07-06 09:03 | P.PN ---
Progress Note - Text Progress Note Date: 07/06/21 (8075) Anesthesia Postop day #2 Status post low anterior resection with epidural day #3 Patient seen and examined. Doing well . Complaining of a little bloating and no appetite this morning.. VAS 0 out of 10. No nausea vomiting or pruritus. Ropivacaine [0.1%] with fentanyl 5 mcg/mL at 10 mL an hour. Objective: Vital signs reviewed Lungs: Good chest excursion Abdomen: Appears nondistended Other: [Epidural Site Intact without induration. Dressing intact] Neuro: [No apparent motor block]. [Sensory within normal limits]. Assessment: Status post low anterior resection with epidural postop day #2 Plan: Continue current care with your medical management. Anticipate discontinued catheter tomorrow.
[2021-07-06 09:13] LABS: Basophils # (A) 0.05 X 10*3/uL (0.00-0.10); Basophils % (A) 0.4 %; Eosinophils % (A) 0.8 %; HCT 39.1 % (39.6-50.0); HGB 12.4 g/dL (13.0-17.0); Immature Grans, Automated 0.6 %; Lymphocytes % (A) 19.9 %; MCH 29.6 pg (27.0-32.0); MCHC 31.7 g/dL (32.0-37.0); MCV 93.3 fL (80.0-97.0); Mean Platelet Volume 9.4 fL (9.5-12.2); Monocytes # (A) 1.12 X 10*3/uL (0.20-1.00); Monocytes % (A) 8.9 %; NRBC Per 100 WBC 0 /100 WBCS (0.0-0.0); Neutrophils # (A) 8.69 X 10*3/uL (1.80-7.70); Neutrophils % (A) 69.4 %; Platelet Count 357 X 10*3/uL (140-440); RBC 4.19 X 10*6/uL (4.40-5.60); RDW 13.8 % (11.5-14.5); WBC 12.54 X 10*3/uL (4.50-10.00)
[2021-07-06 09:27] LABS: African American GFR (CKD) 93.7 (60.0-200.0); Anion Gap 9.6 mmol/L (10.00-18.00); BUN/Creat Ratio 9.2 Ratio (12.00-20.00); Blood Urea Nitrogen 9.2 mg/dL (9.0-27.0); Calcium 8.5 mg/dL (8.7-10.3); Carbon Dioxide 23.4 mmol/L (20.0-27.5); Non-African American GFR(CKD) 80.9 (60.0-200.0); Potassium 3.9 mmol/L (3.5-5.5)
--- NOTE | 2021-07-06 13:10 | P.PN ---
Subjective Progress Note Date: 07/06/21 CHIEF COMPLAINT: Diverticulitis HISTORY OF PRESENT ILLNESS: The patient is a 61-year-old male status post colovesical fistula repair. He feels well. He is POD 2.He is sitting at bedside. No fllatus. He is belching. He has his epidural. ROS: No reports of nausea and vomiting. No bowel movements. No fevers or chills. No new chest pain. No productive sputum PHYSICAL EXAM: VITAL SIGNS: Reviewed CONSTITUTIONAL: Well developed and in no acute distress. EYES: Conjuctivae without sclera icterus. Extraocular movements grossly intact. HEAD, EARS, NOSE, THROAT: Moist buccal mucosa. Head is atraumatic, normocephalic. Hears conversational speech. No nasal drainage. RESPIRATORY: Non-labored respirations and equal bilateral excursions. CARDIOVASCULAR: Palpable 2+ radial pulses. ABDOMEN: Dressing intact. No peritonitis. : Avila present with clear urine. MUSCULOSKELETAL: No gross deformity of the lower extremities noted. No clubbing. No cyanosis. SKIN: Good skin turgor. Well perfused. NEUROLOGIC: Cranial nerves II through XII grossly intact. No focal or lateralizing signs. PSYCH: Appropriate affect. Alert and oriented to person, place and time. CLINICAL LABS: Reviewed. WBC elevated over 15,000 now down to over 12,000 ASSESSMENT: 1. Colovesical fistula PLAN: 1. Epidural per protocol with removal tomorrow. 2. Entereg protocol if qualifies for ileus prevention. Objective - Vital Signs Vital signs: Vital Signs Temp 97.8 F 07/06/21 08:00 Pulse 51 L 07/06/21 08:00 Resp 18 07/06/21 08:00 BP 117/69 07/06/21 08:00 Pulse Ox 96 07/06/21 08:00 Intake & Output 07/05/21 07/06/21 07/06/21 18:59 06:59 18:59 Intake Total 7.5 202.167 Output Total 1400 1500 Balance -1392.5 -1500 202.167 Intake: Intake, IV Titration 7.5 202.167 Amount Ropivacaine 250 mg 7.5 202.167 fentaNYL (PF) 1,250 mcg In Sodium Chloride 0.9% 175 ml @ Per Protocol EPIDURAL .Q0M PRN Rx#: [id number] Output: Urine 1400 1500 Other: Voiding Method Indwelling Catheter Indwelling Catheter Indwelling Catheter - Labs CBC & Chem 7: 07/06/21 04:21 07/06/21 04:21 Labs: Abnormal Lab Results - Last 24 Hours (Table) 07/06/21 07/06/21 Range/Units 04:21 04:21 WBC 12.54 H (4.50-10.00) X 10*3/uL RBC 4.19 L (4.40-5.60) X 10*6/uL Hgb 12.4 L (13.0-17.0) g/dL Hct 39.1 L (39.6-50.0) % MCHC 31.7 L (32.0-37.0) g/dL MPV 9.4 L (9.5-12.2) fL Immature Gran # 0.08 H (0.00-0.04) X 10*3/uL Neutrophils # 8.69 H (1.80-7.70) X 10*3/uL Monocytes # 1.12 H (0.20-1.00) X 10*3/uL Sodium 134 L (135-145) mmol/L Anion Gap 9.60 L (10.00-18.00) mmol/L BUN/Creatinine Ratio 9.20 L (12.00-20.00) Ratio Calcium 8.5 L (8.7-10.3) mg/dL
--- NOTE | 2021-07-06 20:53 | P.PN ---
Subjective Progress Note Date: 07/06/21 Patient is a 61-year-old male without significant past medical history, previous history of smoking and recently diagnosed colovesical fistula was admitted to the hospital for elective surgery. Patient underwent low anterior sigmoid resection, mobilization of splenic flexure and partial omentectomy. Recent CT of abdomen pelvis on 05/21/2021 showed areas present within the urinary bladder. There is prostate enlargement. Correlate for diverticulitis. Cholelithiasis and hepatic steatosis. Patient is s/p surgery and currently able to get up from the bed. No complaints of chest pain or shortness of breath. Patient is still on epidural. No fever no chills. No cough or sputum production.. No leg swelling. Denied any dizziness or lightheadedness. No nausea or vomiting. Laboratory data showed WBC 15.28 hemoglobin 13.4 and platelets 364 Sodium 136 potassium 4.5 chloride 102 bicarb is 24.3 BUN 12.9 creatinine 1.3 calcium 9.2. 07/06/2021 Patient is currently ambulating in the hallway. No complaints of chest pain or shortness of breath. States that his abdomen feels bloated. Not passing flatus. No bowel movement yet. Pain is controlled with medications. No episodes of vomiting. No fever no chills. Laboratory data showed WBC trending down to 12.5 hemoglobin 12.4 and platelets 357 Sodium 134 potassium 3.9 chloride 101 bicarb is 23.4 BUN 9.2 and creatinine 1.0. Calcium 8.5. Current medications reviewed. Objective - Vital Signs Vital signs: Vital Signs Temp 97.8 F 07/06/21 08:00 Pulse 51 L 07/06/21 08:00 Resp 18 07/06/21 08:00 BP 117/69 07/06/21 08:00 Pulse Ox 96 07/06/21 08:00 Intake & Output 07/05/21 07/06/21 07/06/21 18:59 06:59 18:59 Intake Total 7.5 202.167 Output Total 1400 1500 Balance -1392.5 -1500 202.167 Intake: Intake, IV Titration 7.5 202.167 Amount Ropivacaine 250 mg 7.5 202.167 fentaNYL (PF) 1,250 mcg In Sodium Chloride 0.9% 175 ml @ Per Protocol EPIDURAL .Q0M PRN Rx#: [id number] Output: Urine 1400 1500 Other: Voiding Method Indwelling Catheter Indwelling Catheter - Exam PHYSICAL EXAMINATION: Patient is lying in the bed comfortably, no acute distress, awake alert and oriented.. HEENT: Normocephalic. Neck is supple. Pupils reactive. Nostrils clear. Oral cavity is moist. Neck reveals no JVD, carotid bruits, or thyromegaly. CHEST EXAMINATION: Trachea is central. Symmetrical expansion. Lung frazier clear to auscultation and percussion. CARDIAC: Normal S1, S2 with no gallops. No murmurs ABDOMEN: Soft. Bowel sounds diminished. Surgical site is bandaged.. No organomegaly. No abdominal bruits. Extremities: reveal no edema. No clubbing or cyanosis Neurologically awake, alert, oriented x3 with well-coordinated movements. No focal deficits noted Skin: No rash or skin lesions. Psychiatric: Cooperative. Nonsuicidal Musculoskeletal: No joint swelling or deformity. Normal range of motion. - Labs CBC & Chem 7: 07/06/21 04:21 07/06/21 04:21 Labs: Abnormal Lab Results - Last 24 Hours (Table) 07/06/21 07/06/21 Range/Units 04:21 04:21 WBC 12.54 H (4.50-10.00) X 10*3/uL RBC 4.19 L (4.40-5.60) X 10*6/uL Hgb 12.4 L (13.0-17.0) g/dL Hct 39.1 L (39.6-50.0) % MCHC 31.7 L (32.0-37.0) g/dL MPV 9.4 L (9.5-12.2) fL Immature Gran # 0.08 H (0.00-0.04) X 10*3/uL Neutrophils # 8.69 H (1.80-7.70) X 10*3/uL Monocytes # 1.12 H (0.20-1.00) X 10*3/uL Sodium 134 L (135-145) mmol/L Anion Gap 9.60 L (10.00-18.00) mmol/L BUN/Creatinine Ratio 9.20 L (12.00-20.00) Ratio Calcium 8.5 L (8.7-10.3) mg/dL Assessment and Plan Assessment: Status post low anterior sigmoid resection and partial omentectomy Recently diagnosed colovesical fistula. Leukocytosis likely due to post operative inflammatory reaction. Previous history of smoking DVT prophylaxis. Plan: Patient will be continued IV hydration, pain management and bowel regimen. Encourage incentive spirometry and ambulation. On antibiotics in the form of Z osyn. PT OT consulted and follow-up closely. Patient was started on liquid diet and advance as tolerated. We will continue to follow and further recommendations based on the clinical course.
[2021-07-07] MEDS: PIPERACILLIN-TAZOBACTAM 3.375 GM in SODIUM CHLORIDE 0.9% 100 ML IVPB SCH ×3 (03:07→17:26)
[2021-07-07] MEDS: HEPARIN SODIUM,PORCINE/PF 5,000 UNIT/0.5 ML SYRINGE SQ SCH ×3 (03:08→20:56)
[2021-07-07] MEDS: LACTATED RINGERS 1,000 ML IV SCH (06:08)
[2021-07-07] MEDS: ALVIMOPAN 12 MG CAPSULE PO SCH ×2 (08:21→20:56)
[2021-07-07] MEDS: FAMOTIDINE 20 MG/2 ML VIAL IV SCH ×2 (08:21→20:56)
[2021-07-07] MEDS: HYDROmorphone 1 MG/ML 1 ML SYRINGE IVP PRN ×4 (08:26→19:02)
--- NOTE | 2021-07-07 10:37 | P.PN ---
Progress Note - Text 07/07/21 649am 61 year old male s/p low ant resection, doing well with a vas of 1 ,no motor or sensory weakness.epidural to be d/ina
--- NOTE | 2021-07-07 10:39 | P.PN ---
Subjective Progress Note Date: 07/07/21 CHIEF COMPLAINT: Colovesical fistula HISTORY OF PRESENT ILLNESS: Patient is postop day #3 status post lower anterior sigmoid resection, mobilization of splenic flexure and partial omentectomy. Patient's epidural was removed this morning. His pain is currently controlled. He rates his abdominal pain about a 1 out of 10. He is complaining more of right knee pain. He thinks he may have tweaked his knee getting out of bed. He denies any nausea or vomiting. Denies any flatus or bowel movements. He is sitting up at bedside chair. Afebrile. Patient has mild tachycardia. Labs for today are pending. WBC yesterday 12 PHYSICAL EXAM: VITAL SIGNS: Reviewed. GENERAL: Well-developed in no acute distress. HEENT: No sclera icterus. Extraocular movements grossly intact. Moist buccal mucosa. Head is atraumatic, normocephalic. ABDOMEN: Soft. Nondistended. Nontender incision site clean dry and intact. NEUROLOGIC: Alert and oriented. Cranial nerves II through XII grossly intact. Extremities: Swelling of the right knee ASSESSMENT: 1. Colovesical fistula and active diverticulitis status post lower anterior sigmoid resection, mobilization of splenic flexure and partial omentectomy PLAN: -Keep Avila catheter in place -Epidural discontinued today -Oral [place] added for pain control -Continue clear liquid diet -Incisional dressing changed today -Encourage patient to ambulate -Encourage patient to use incentive spirometer -Continue antibiotics -DVT prophylaxis subcu heparin Physician Console Manager note has been reviewed by physician. Signing provider agrees with the documented findings, assessment, and plan of care. I have personally seen and examined the patient, reviewed the DIRECTOR INFORMATICS /PAs history, exam and MDM and agree with the assessment and plan as written. Based on total visit time, I have performed more than 50% of the visit. As above: Patient starting having increased midline pain 1 hour after epidural removal. When laying still pain as a 3 out of 10 says. No flatus. Some bloating but no different than yesterday. Labs noted. Will increase analgesics at this time. Gradually increase activity level. If knee pain persists we'll consult Dr. Melvin tomorrow. Recheck labs in a.m. Continue clear liquids. Objective - Vital Signs Vital signs: Vital Signs Temp 98.6 F 07/07/21 07:44 Pulse 109 H 07/07/21 07:44 Resp 19 07/07/21 07:44 BP 132/75 07/07/21 07:44 Pulse Ox 96 07/07/21 07:44 Intake & Output 07/06/21 07/07/21 07/07/21 18:59 06:59 18:59 Intake Total 202.167 Output Total 750 1650 Balance -547.833 -1650 Intake: Intake, IV Titration 202.167 Amount Ropivacaine 250 mg 202.167 fentaNYL (PF) 1,250 mcg In Sodium Chloride 0.9% 175 ml @ Per Protocol EPIDURAL .Q0M PRN Rx#: [id number] Output: Urine 750 1650 Other: Voiding Method Indwelling Catheter Indwelling Catheter Indwelling Catheter - Labs CBC & Chem 7: 07/07/21 05:32 07/07/21 05:32
[2021-07-07 10:47] LABS: Basophils # (A) 0.03 X 10*3/uL (0.00-0.10); Basophils % (A) 0.2 %; Eosinophils # (A) 0.21 X 10*3/uL (0.04-0.35); Eosinophils % (A) 1.7 %; HCT 40.8 % (39.6-50.0); HGB 12.8 g/dL (13.0-17.0); Immature Grans, Automated 0.6 %; Lymphocytes # (A) 0.95 X 10*3/uL (0.90-5.00); Lymphocytes % (A) 7.6 %; MCH 29.5 pg (27.0-32.0); MCHC 31.4 g/dL (32.0-37.0); Mean Platelet Volume 8.9 fL (9.5-12.2); Monocytes # (A) 1.22 X 10*3/uL (0.20-1.00); Monocytes % (A) 9.8 %; NRBC Per 100 WBC 0 /100 WBCS (0.0-0.0); Neutrophils # (A) 10.03 X 10*3/uL (1.80-7.70); Neutrophils % (A) 80.1 %; Platelet Count 363 X 10*3/uL (140-440); RBC 4.34 X 10*6/uL (4.40-5.60); RDW 13.9 % (11.5-14.5); WBC 12.51 X 10*3/uL (4.50-10.00)
[2021-07-07 11:10] LABS: African American GFR (CKD) 95.2 (60.0-200.0); Anion Gap 9.4 mmol/L (10.00-18.00); BUN/Creat Ratio 5.68 Ratio (12.00-20.00); Blood Urea Nitrogen 5.6 mg/dL (9.0-27.0); Calcium 8.8 mg/dL (8.7-10.3); Carbon Dioxide 24.3 mmol/L (20.0-27.5); Non-African American GFR(CKD) 82.2 (60.0-200.0); Potassium 4.5 mmol/L (3.5-5.5)
[2021-07-07] MEDS: D5-0.45% NACL WITH KCL 20MEQ/L 1,000 ML IV SCH (11:11)
[2021-07-07] MEDS: HYDROcodone/APAP 5-325MG 1 EACH TAB PO PRN (11:14)
--- NOTE | 2021-07-07 12:50 | XR ---
EXAMINATION TYPE: XR knee limited RT DATE OF EXAM: 07/07/2021 COMPARISON: NONE HISTORY: Pain TECHNIQUE: Two views are submitted. FINDINGS: Comparison complete loss of joint space along the lateral compartment with moderate changes involving the patellofemoral joint. Large suprapatellar bursal fluid collection.. Osseous structures are inta ct. No acute fracture seen. IMPRESSION: 1. No acute fracture or dislocation. Severe arthropathy. Large suprapatellar bursal fluid collection correlate with MRI as clinically warranted.
[2021-07-07] MEDS: D5-0.9% NACL WITH KCL 20 MEQ/L 1,000 ML IV SCH ×2 (13:12→23:05)
[2021-07-07] MEDS: KETOROLAC 15 MG/ML 1 ML VIAL IVP SCH ×2 (15:07→20:56)
[2021-07-07] MEDS: ACETAMINOPHEN IV (For NPO) 1,000 MG in EMPTY BAG 1 BAG IVPB SCH ×2 (16:40→23:05)
--- NOTE | 2021-07-07 18:05 | P.CNOR ---
History of Present Illness - [facility] Consult date: 07/07/21 History of present illness: The patient is a very pleasant 61-year-old male who is presently admitted to Dr. Celeste having recently undergone colon surgery for a colovesical fistula. He does have a history of right knee issues and has seen another orthopedist for this. He states that he's been told he has arthritis and a meniscus tear. He denies any history of gout or inflammatory arthropathy. Over the last 24 hours he is developed relatively acute onset and atraumatic right knee pain and swelling. He denies fevers or chills. He says that his whole leg is swollen and painful. Past Medical History Past Medical History: No Reported History Additional Past Medical History / Comment(s): ECZEMA. 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 Past Anesthesia/Blood Transfusion Reactions: No Reported Reaction Past Psychological History: No Psychological Hx Reported Smoking Status: Former smoker Past Alcohol Use History: None Reported Additional Past Alcohol Use History / Comment(s): QUIT SMOKING 2017 Past Drug Use History: None Reported - Past Family History Mother Family Medical History: No Reported History Medications and Allergies Home Medications Medication Instructions Recorded Confirmed Type Acetaminophen [Tylenol Extra 1,000 mg PO Q8HR PRN 07/01/21 07/04/21 History Strength] Etodolac [Lodine] 200 mg PO DAILY 07/01/21 07/04/21 History Allergies Allergy/AdvReac Type Severity Reaction Status Date / Time No Known Allergies Allergy Verified 07/04/21 10:05 Physical Examination The patient is resting comfortably in his bed. His head is normocephalic and atraumatic. His cervical spine is midline. Edematous was nonlabored breathing with symmetric chest expansion. He has palpable pulses. A focused exam of the right leg was conducted. On inspection there is diffuse swelling over the knee. There is no erythema or warmth. He has a large and tense knee effusion. He has pain with any attempts at passive range of motion of the knee. His thigh and calf are soft. Motor and sensory function are intact distally. Results Nonweightbearing x-rays of the right knee show diffuse arthritis most pronounced in the lateral compartment - Labs Labs: Abnormal Lab Results - Last 24 Hours (Table) 07/07/21 07/07/21 Range/Units 05:32 05:32 WBC 12.51 H (4.50-10.00) X 10*3/uL RBC 4.34 L (4.40-5.60) X 10*6/uL Hgb 12.8 L (13.0-17.0) g/dL MCHC 31.4 L (32.0-37.0) g/dL MPV 8.9 L (9.5-12.2) fL Immature Gran # 0.07 H (0.00-0.04) X 10*3/uL Neutrophils # 10.03 H (1.80-7.70) X 10*3/uL Monocytes # 1.22 H (0.20-1.00) X 10*3/uL Sodium 133 L (135-145) mmol/L Anion Gap 9.40 L (10.00-18.00) mmol/L BUN 5.6 L (9.0-27.0) mg/dL BUN/Creatinine Ratio 5.68 L (12.00-20.00) Ratio H & H 07/05/21 07/06/21 07/07/21 Range/Units 06:22 04:21 05:32 Hgb 13.4 12.4 L 12.8 L (13.0-17.0) g/dL Hct 42.0 39.1 L 40.8 (39.6-50.0) % Coagulation 07/04/21 Range/Units 10:27 INR 1.0 (<1.2) Result Diagrams: 07/07/21 05:32 07/07/21 05:32 Assessment and Plan Assessment: Right knee arthritis Acute knee effusion, 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 It was aspirated today at bedside and approximately 70 mL of yellow fluid was aspirated. It did not appear purulent, but appeared consistent with crystalline arthropathy. The fluid was sent for cell count, crystal analysis, and cultures. Once the results come back if his consistent with crystalline arthropathy and he is still painful we could perform a corticosteroid injection into his knee. If by decompressing the knee his pain is improved I would recommend medications for treating gout if the fluid comes back positive for crystalline arthropathy. If he has acute flare of arthritis we could also treated with an injection or medication. Further recommendations following completion of fluid analysis. Procedure: Verbal consent for a right knee aspiration was obtained. The skin over the superolateral pole the patella was prepped with ChloraPrep. Using sterile technique an 18-gauge needle was inserted into the knee and 70 mL's of cloudy yellow fluid was aspirated. It was transferred into Vacutainer tubes, labeled, and sent to the lab. A Band-Aid was applied over the puncture site. The patient tolerated this well and had improvement in his symptoms. Time with Patient: Greater than 30
[2021-07-07 18:37] LABS: Appearance,BF Cloudy; Nucleated Cells, Body Fluid 32400 /uL; RBC, Body Fluid 1400 /uL
[2021-07-07 18:54] LABS: Mononuclear WBC,Body Fluid 21 %; Polynuclear WBC,Body Fluid 79 %; Total Cells Counted,Body Fluid 100
[2021-07-07 23:57] LABS: Synovial Fld Crystals None Seen (None Seen)
[2021-07-08] MEDS: HYDROmorphone 1 MG/ML 1 ML SYRINGE IVP PRN ×3 (01:02→22:14)
--- NOTE | 2021-07-08 01:20 | P.PN ---
Subjective Progress Note Date: 07/07/21 Patient is a 61-year-old male without significant past medical history, previous history of smoking and recently diagnosed colovesical fistula was admitted to the hospital for elective surgery. Patient underwent low anterior sigmoid resection, mobilization of splenic flexure and partial omentectomy. Recent CT of abdomen pelvis on 05/21/2021 showed areas present within the urinary bladder. There is prostate enlargement. Correlate for diverticulitis. Cholelithiasis and hepatic steatosis. Patient is s/p surgery and currently able to get up from the bed. No complaints of chest pain or shortness of breath. Patient is still on epidural. No fever no chills. No cough or sputum production.. No leg swelling. Denied any dizziness or lightheadedness. No nausea or vomiting. Laboratory data showed WBC 15.28 hemoglobin 13.4 and platelets 364 Sodium 136 potassium 4.5 chloride 102 bicarb is 24.3 BUN 12.9 creatinine 1.3 calcium 9.2. 07/06/2021 Patient is currently ambulating in the hallway. No complaints of chest pain or shortness of breath. States that his abdomen feels bloated. Not passing flatus. No bowel movement yet. Pain is controlled with medications. No episo marci of vomiting. No fever no chills. Laboratory data showed WBC trending down to 12.5 hemoglobin 12.4 and platelets 357 Sodium 134 potassium 3.9 chloride 101 bicarb is 23.4 BUN 9.2 and creatinine 1.0. Calcium 8.5. 07/07/2021 Patient is seen and evaluated in follow-up status post repair of a colovesical fistula with Dr. Celeste and being closely monitored. Patient reports to no gas and has not had a bowel movement yet. Patient is maintained on clear liquids and also IV hydration of D5 45 with potassium and patient becoming a bit hyponatremic and we will transition to the IV fluids and recommend repeat labs. Patient is having some severe 10/10 pain of the right knee and reports to being seen in the outpatient setting for "bone on bone issues" and needs surgery although hadn't been bothering him and has a brace that his son is bringing. Patient denies any trauma or injury and reports while attempting to get out of the bed this am he felt the pain and thought he may have twisted it. Will get right knee xray and possible ortho consult. Patient is afebrile. Patient denies chest pain or shortness of breath. Patient continues on epidural for pain and will continue indwelling varela catheter. Review of systems: Constitutional: No reports of fatigue, fever, or chills Cardiovascular: No reports of chest pain or palpitations Respiratory: No reports of shortness of breath or cough GI: No reports of nausea, vomiting, or diarrhea : No reports of dysuria or retention Neurovascular: No reports of weakness or numbness, reports right knee pain and swelling All medications have been reviewed Active Medications Hydrocodone Bitart/Acetaminophen (Hydrocodone/Apap 5-325mg 1 Each Tab) 1 each PO Q4HR PRN PRN Reason: Moderate Pain Last Admin: 07/07/21 11:14 Dose: 1 each Documented by: Alvimopan (Alvimopan 12 Mg Capsule) 12 mg PO BID [facility] Stop: 07/11/21 21:01 Last Admin: 07/07/21 08:21 Dose: 12 mg Documented by: Diphenhydramine HCl (Diphenhydramine 50 Mg/Ml 1 Ml Vial) 12.5 mg IVP Q6HR PRN PRN Reason: Itching Famotidine (Famotidine 20 Mg/2 Ml Vial) 20 mg IV BID [facility] Last Admin: 07/07/21 08:21 Dose: 20 mg Documented by: Heparin Sodium (Porcine) (Heparin Sodium,Porcine/Pf 5,000 Unit/0.5 Ml Syringe) 5,000 unit SQ Q8H [facility] Last Admin: 07/07/21 12:23 Dose: 5,000 unit Documented by: Hydromorphone HCl (Hydromorphone 1 Mg/Ml 1 Ml Syringe) 1 mg IVP Q3HR PRN PRN Reason: Severe Pain Last Admin: 07/07/21 12:20 Dose: 1 mg Documented by: Lactated Ringer's (Lactated Ringers) 1,000 mls @ 20 mls/hr IV .Q24H [facility] Last Admin: 07/07/21 06:08 Dose: Not Given Documented by: Ropivacaine 250 mg/ Fentanyl Citrate 1,250 mcg/ Sodium Chloride 250 mls @ 0 mls/hr EPIDURAL .Q0M PRN; Protocol PRN Reason: Pain Control Last Admin: 07/06/21 08:22 Dose: 10 mls/hr Documented by: Piperacillin Sod/Tazobactam (Sod 3.375 gm/ Sodium Chloride) 100 mls @ 25 mls/hr IVPB Q8H [facility]; Protocol Last Admin: 07/07/21 09:30 Dose: 25 mls/hr Documented by: Potassium Chloride/Dextrose/Sod Cl (D5%-Ns-Kcl 20 Meq/L Iv Solution) 1,000 mls @ 100 mls/hr IV .Q10H [facility] Last Admin: 07/07/21 13:12 Dose: 100 mls/hr Documented by: Ketorolac Tromethamine (Ketorolac 15 Mg/Ml 1 Ml Vial) 15 mg IVP Q6H [facility] Stop: 07/12/21 15:01 Last Admin: 07/07/21 15:07 Dose: 15 mg Documented by: Metoclopramide HCl (Metoclopramide 5 Mg/Ml 2 Ml Vial) 10 mg IVP Q6HR PRN PRN Reason: Nausea and Vomiting Nalbuphine HCl (Nalbuphine 10 Mg/Ml (1 Ml Amp)) 2.5 mg IV Q4HR PRN PRN Reason: Itching Naloxone HCl (Naloxone 0.4 Mg/Ml 1 Ml Vial) 0.2 mg IV Q2M PRN PRN Reason: Opioid Reversal Ondansetron HCl (Ondansetron 4 Mg/2 Ml Vial) 4 mg IVP Q8HR PRN PRN Reason: Nausea And Vomiting Last Admin: 07/06/21 08:30 Dose: 4 mg Documented by: PHYSICAL EXAMINATION: Patient is sitting up in the chair comfortably, no acute distress, awake alert and oriented.. HEENT: Normocephalic. Neck is supple. Pupils reactive. Nostrils clear. Oral cavity is moist. Neck reveals no JVD, carotid bruits, or thyromegaly. CHEST EXAMINATION: Trachea is central. Symmetrical expansion. Lung frazier clear to auscultation and percussion. CARDIAC: Normal S1, S2 with no gallops. No murmurs ABDOMEN: Soft. Bowel sounds diminished. Surgical site is bandaged.. No organomegaly. No abdominal bruits. Extremities: reveal no edema. No clubbing or cyanosis Neurologically awake, alert, oriented x3 with well-coordinated movements. No focal deficits noted Skin: No rash or skin lesions. Psychiatric: Cooperative. Nonsuicidal Musculoskeletal: right knee joint swelling and pain. no deformity. limitedl range of motion of the right knee due to pain. Assessment: Status post low anterior sigmoid resection and partial omentectomy Recently diagnosed colovesical fistula. Leukocytosis likely due to post operative inflammatory reaction. hyponatremia possibly secondary to IV fluids of D5/.45 and will change to D5.9 and repeat labs right knee pain Previous history of smoking DVT prophylaxis. GI prophylaxis Full code Plan: Patient will be continued IV hydration although recommend changing to D5/.9 as patient is a bit hyponatremic, pain management and bowel regimen per surgical services. Encourage incentive spirometry and ambulation. On antibiotics in the form of Zosyn. PT/OT following Right knee pain and xray shows no fracture or dislocation with severe arthropathy and large suprapatellar bursal fluid collection. Patient reports to needing surgery for the right knee although have been putting it off and using a brace as needed and has not had difficulty with pain recently. Patient reports to waking up and feeling the swelling and thought he twisted the knee wrong. Son bringing in the brace. Will consult ortho for possible drainage. Appreciate input and recommendations. Continue indwelling varela catheter until clear by Dr. Celeste. Epidural is being discontinued today. Patient was started on clear liquid diet and advance as tolerated per surgical recommendations. No reports of gas or bowel movement, just belching. Encouraged increased activity as tolerated. We will continue to follow with surgery during hospitalization. Thank you for this consultation. The impression and plan of care has been dictated by Danielle Way, Nurse Practitioner as directed. Dr. John MD I have performed a history and examination and MDM of this patient, discussed the same with the dictator, and agree with the dictator's assessment and plan as written ,documented as a scribe. Based on total visit time, I have performed more than 50% of the visit. Objective - Vital Signs Vital signs: Vital Signs Temp 98.6 F 07/07/21 07:44 Pulse 109 H 07/07/21 07:44 Resp 19 07/07/21 07:44 BP 132/75 07/07/21 07:44 Pulse Ox 96 07/07/21 07:44 Intake & Output 07/06/21 07/07/21 07/07/21 18:59 06:59 18:59 Intake Total 202.167 Output Total 750 1650 Balance -547.833 -1650 Intake: Intake, IV Titration 202.167 Amount Ropivacaine 250 mg 202.167 fentaNYL (PF) 1,250 mcg In Sodium Chloride 0.9% 175 ml @ Per Protocol EPIDURAL .Q0M PRN Rx#: [id number] Output: Urine 750 1650 Other: Voiding Method Indwelling Catheter Indwelling Catheter Indwelling Catheter - Labs CBC & Chem 7: 07/07/21 05:32 07/07/21 05:32 Labs: Abnormal Lab Results - Last 24 Hours (Table) 07/06/21 Range/Units 04:21 Sodium 134 L (135-145) mmol/L Anion Gap 9.60 L (10.00-18.00) mmol/L BUN/Creatinine Ratio 9.20 L (12.00-20.00) Ratio Calcium 8.5 L (8.7-10.3) mg/dL
[2021-07-08] MEDS: PIPERACILLIN-TAZOBACTAM 3.375 GM in SODIUM CHLORIDE 0.9% 100 ML IVPB SCH ×3 (01:59→17:01)
[2021-07-08] MEDS: KETOROLAC 15 MG/ML 1 ML VIAL IVP SCH ×4 (02:00→20:55)
[2021-07-08] MEDS: ACETAMINOPHEN IV (For NPO) 1,000 MG in EMPTY BAG 1 BAG IVPB SCH ×2 (05:06→12:07)
[2021-07-08] MEDS: HEPARIN SODIUM,PORCINE/PF 5,000 UNIT/0.5 ML SYRINGE SQ SCH ×3 (05:06→20:55)
[2021-07-08] MEDS: LACTATED RINGERS 1,000 ML IV SCH (07:09)
[2021-07-08] MEDS: ALVIMOPAN 12 MG CAPSULE PO SCH ×2 (07:21→20:55)
[2021-07-08] MEDS: FAMOTIDINE 20 MG/2 ML VIAL IV SCH ×2 (07:22→20:55)
[2021-07-08] MEDS ORDERED: methylPREDNISolone ACETATE 40 MG/ML 1 ML VIAL INTRAARTIC STA (08:00)
[2021-07-08] MEDS ORDERED: LIDOCAINE 2% INJ 20 MG/ML (20 ML MDV) SQ STA (08:03)
--- NOTE | 2021-07-08 08:23 | P.PN ---
Subjective Progress Note Date: 07/08/21 This is a 61-year-old male who is being followed by orthopedics for right knee pain and swelling. Patient had a bedside aspiration of the right knee yesterday by Dr. Onofre. Patient is seen and evaluated at bedside this morning and states that his pain has greatly improved and he has been able to bear weight on the right lower extremity. Patient denies any new complaints today. Objective - Vital Signs Vital signs: Vital Signs Temp 98.0 F 07/08/21 08:02 Pulse 86 07/08/21 08:02 Resp 16 07/08/21 08:02 BP 151/83 07/08/21 08:02 Pulse Ox 99 07/08/21 08:02 Intake & Output 07/07/21 07/08/21 07/08/21 18:59 06:59 18:59 Intake Total 100 Output Total 850 1300 550 Balance -750 -1300 -550 Intake: Intake, IV Titration 100 Amount Piperacillin-Tazobactam 3 100 .375 gm In Sodium Chloride 0.9% 100 ml @ 25 mls/hr IVPB Q8H [facility] Rx#: [id number] Output: Urine 850 1300 550 Other: Voiding Method Indwelling Catheter Indwelling Catheter Indwelling Catheter - Exam On exam patient is resting comfortably in bed in no acute distress. Patient is alert and oriented 3. There is a mild effusion of the right knee. There is no erythema. Patient has good active range of motion of the right knee without pain or difficulty. Calf is soft and nontender to palpation. Sensation intact. Neurovascular status and circulatory status are intact. - Labs CBC & Chem 7: 07/07/21 05:32 07/07/21 05:32 Labs: Abnormal Lab Results - Last 24 Hours (Table) 07/07/21 07/07/21 Range/Units 05:32 05:32 WBC 12.51 H (4.50-10.00) X 10*3/uL RBC 4.34 L (4.40-5.60) X 10*6/uL Hgb 12.8 L (13.0-17.0) g/dL MCHC 31.4 L (32.0-37.0) g/dL MPV 8.9 L (9.5-12.2) fL Immature Gran # 0.07 H (0.00-0.04) X 10*3/uL Neutrophils # 10.03 H (1.80-7.70) X 10*3/uL Monocytes # 1.22 H (0.20-1.00) X 10*3/uL Sodium 133 L (135-145) mmol/L Anion Gap 9.40 L (10.00-18.00) mmol/L BUN 5.6 L (9.0-27.0) mg/dL BUN/Creatinine Ratio 5.68 L (12.00-20.00) Ratio Microbiology - Last 24 Hours (Table) 07/07/21 18:06 Body Fluid Culture - Preliminary Knee - Right Assessment and Plan (1) Right knee pain Current Visit: Yes Status: Acute Code(s): M25.561 - PAIN IN RIGHT KNEE SNOMED Code(s): 7277795966 (2) Osteoarthritis of right knee Current Visit: Yes Status: Acute Code(s): M17.11 - UNILATERAL PRIMARY OSTEOARTHRITIS, RIGHT KNEE SNOMED Code(s): 621867392646341 Plan: It is discussed with the patient at bedside that his symptoms are likely secondary to right knee osteoarthritis. Synovial fluid analysis is negative for infection or gout. Patient is offered a steroid injection for the right knee today, but declines at this time because his symptoms have improved. Patient may follow up as an outpatient on an as-needed basis.
[2021-07-08] MEDS: D5-0.9% NACL WITH KCL 20 MEQ/L 1,000 ML IV SCH ×2 (08:50→17:03)
[2021-07-08 09:13] LABS: Basophils # (A) 0.02 X 10*3/uL (0.00-0.10); Basophils % (A) 0.2 %; Eosinophils # (A) 0.39 X 10*3/uL (0.04-0.35); Eosinophils % (A) 3.5 %; HCT 38.4 % (39.6-50.0); HGB 12.1 g/dL (13.0-17.0); Immature Grans, Automated 0.7 %; Lymphocytes % (A) 11.8 %; MCH 29.4 pg (27.0-32.0); MCHC 31.5 g/dL (32.0-37.0); MCV 93.2 fL (80.0-97.0); Mean Platelet Volume 8.7 fL (9.5-12.2); Monocytes # (A) 0.81 X 10*3/uL (0.20-1.00); Monocytes % (A) 7.4 %; NRBC Per 100 WBC 0 /100 WBCS (0.0-0.0); Neutrophils # (A) 8.39 X 10*3/uL (1.80-7.70); Neutrophils % (A) 76.4 %; Platelet Count 340 X 10*3/uL (140-440); RBC 4.12 X 10*6/uL (4.40-5.60); RDW 14.1 % (11.5-14.5); WBC 10.99 X 10*3/uL (4.50-10.00)
[2021-07-08 09:36] LABS: African American GFR (CKD) 83.5 (60.0-200.0); Anion Gap 8.9 mmol/L (10.00-18.00); BUN/Creat Ratio 4.73 Ratio (12.00-20.00); Blood Urea Nitrogen 5.2 mg/dL (9.0-27.0); Calcium 8.6 mg/dL (8.7-10.3); Carbon Dioxide 25.1 mmol/L (20.0-27.5); Non-African American GFR(CKD) 72.1 (60.0-200.0); Potassium 4.5 mmol/L (3.5-5.5)
--- NOTE | 2021-07-08 11:30 | P.PN ---
Subjective Progress Note Date: 07/08/21 CHIEF COMPLAINT: Colovesical fistula HISTORY OF PRESENT ILLNESS: Patient is postop day #4 status post lower anterior sigmoid resection, mobilization of splenic flexure and partial omentectomy. Patient reports that his pain is doing better today. Toradol was added yesterday. Patient reports the abdominal binder is helping with his pain. He sitting up at bedside chair. He rates his pain about a 2 out of 10. He does note increasing abdominal pain after walking. He has been able to ambulate in the hallway today. He denies any nausea vomiting. Denies any flatus. Tolerating clear liquids. He was evaluated by orthopedics and they did aspirate fluid from the right knee. Patient reports his knee pain is less today. Afebrile. WBC 12.5 down to 10.9 hemoglobin 12.1 platelets 340 sodium is 136 potassium 4.5 creatinine 1.1 PHYSICAL EXAM: VITAL SIGNS: Reviewed. GENERAL: Well-developed in no acute distress. HEENT: No sclera icterus. Extraocular movements grossly intact. Moist buccal mucosa. Head is atraumatic, normocephalic. ABDOMEN: Soft. Mildly distended. Abdominal binder in place. NEUROLOGIC: Alert and oriented. Cranial nerves II through XII grossly intact. ASSESSMENT: 1. Colovesical fistula and active diverticulitis status post lower anterior sigmoid resection, mobilization of splenic flexure and partial omentectomy 2. Right knee effusion followed by orthopedics PLAN: -Keep Avila catheter in place -Continue clear liquid diet -Continue pain medication as needed -Encourage patient to ambulate -Encourage patient to use incentive spirometer -Continue antibiotics -DVT prophylaxis subcu heparin and GI prophylaxis Pepcid Physician Executive Assistant note has been reviewed by physician. Signing provider agrees with the documented findings, assessment, and plan of care. I have personally seen and examined the patient, reviewed the HIDE TANNER /PAs history, exam and MDM and agree with the assessment and plan as written. Based on total visit time, I have performed more than 50% of the visit. As above: Patient doing better today. His knee is much better after aspiration yesterday evening. Still no flatus. He is ambulating in the hallways. Says his pain is well-controlled. Feels less bloated. No nausea. Continue clear liquids for now. Objective - Vital Signs Vital signs: Vital Signs Temp 98.0 F 07/08/21 08:02 Pulse 86 07/08/21 08:02 Resp 16 07/08/21 08:02 BP 151/83 07/08/21 08:02 Pulse Ox 99 07/08/21 08:02 Intake & Output 07/07/21 07/08/21 07/08/21 18:59 06:59 18:59 Intake Total 100 Output Total 850 1300 550 Balance -750 -1300 -550 Intake: Intake, IV Titration 100 Amount Piperacillin-Tazobactam 3 100 .375 gm In Sodium Chloride 0.9% 100 ml @ 25 mls/hr IVPB Q8H [facility] Rx#: [id number] Output: Urine 850 1300 550 Other: Voiding Method Indwelling Catheter Indwelling Catheter Indwelling Catheter - Labs CBC & Chem 7: 07/08/21 05:16 07/08/21 05:16 Labs: Abnormal Lab Results - Last 24 Hours (Table) 07/08/21 07/08/21 Range/Units 05:16 05:16 WBC 10.99 H (4.50-10.00) X 10*3/uL RBC 4.12 L (4.40-5.60) X 10*6/uL Hgb 12.1 L (13.0-17.0) g/dL Hct 38.4 L (39.6-50.0) % MCHC 31.5 L (32.0-37.0) g/dL MPV 8.7 L (9.5-12.2) fL Immature Gran # 0.08 H (0.00-0.04) X 10*3/uL Neutrophils # 8.39 H (1.80-7.70) X 10*3/uL Eosinophils # 0.39 H (0.04-0.35) X 10*3/uL Anion Gap 8.90 L (10.00-18.00) mmol/L BUN 5.2 L (9.0-27.0) mg/dL BUN/Creatinine Ratio 4.73 L (12.00-20.00) Ratio Calcium 8.6 L (8.7-10.3) mg/dL Microbiology - Last 24 Hours (Table) 07/07/21 18:06 Gram Stain - Preliminary Knee - Right Body Fluid Culture - Preliminary
[2021-07-08 12:07] VITALS: BMI 29.2
--- NOTE | 2021-07-08 22:38 | P.PN ---
Subjective Progress Note Date: 07/08/21 Patient is a 61-year-old male without significant past medical history, previous history of smoking and recently diagnosed colovesical fistula was admitted to the hospital for elective surgery. Patient underwent low anterior sigmoid resection, mobilization of splenic flexure and partial omentectomy. Recent CT of abdomen pelvis on 05/21/2021 showed areas present within the urinary bladder. There is prostate enlargement. Correlate for diverticulitis. Cholelithiasis and hepatic steatosis. Patient is s/p surgery and currently able to get up from the bed. No complaints of chest pain or shortness of breath. Patient is still on epidural. No fever no chills. No cough or sputum production.. No leg swelling. Denied any dizziness or lightheadedness. No nausea or vomiting. Laboratory data showed WBC 15.28 hemoglobin 13.4 and platelets 364 Sodium 136 potassium 4.5 chloride 102 bicarb is 24.3 BUN 12.9 creatinine 1.3 calcium 9.2. 07/06/2021 Patient is currently ambulating in the hallway. No complaints of chest pain or shortness of breath. States that his abdomen feels bloated. Not passing flatus. No bowel movement yet. Pain is controlled with medications. No episo marci of vomiting. No fever no chills. Laboratory data showed WBC trending down to 12.5 hemoglobin 12.4 and platelets 357 Sodium 134 potassium 3.9 chloride 101 bicarb is 23.4 BUN 9.2 and creatinine 1.0. Calcium 8.5. 07/07/2021 Patient is seen and evaluated in follow-up status post repair of a colovesical fistula with Dr. Celeste and being closely monitored. Patient reports to no gas and has not had a bowel movement yet. Patient is maintained on clear liquids and also IV hydration of D5 45 with potassium and patient becoming a bit hyponatremic and we will transition to the IV fluids and recommend repeat labs. Patient is having some severe 10/10 pain of the right knee and reports to being seen in the outpatient setting for "bone on bone issues" and needs surgery although hadn't been bothering him and has a brace that his son is bringing. Patient denies any trauma or injury and reports while attempting to get out of the bed this am he felt the pain and thought he may have twisted it. Will get right knee xray and possible ortho consult. Patient is afebrile. Patient denies chest pain or shortness of breath. Patient continues on epidural for pain and will continue indwelling varela catheter. 07/08/2021 Patient is seen today and was evaluated by orthopedics for the right knee pain and patient underwent bedside aspiration of the fluid collection and specimen was sent for analysis which is showing no growth. Patient reports to feeling much better and being able to walk. Patient is working with physical therapy. Patient is maintained on clear liquid diet per surgical recommendations and will continue. Sodium improved and will continue current IV hydration. Patient denies passing gas or bowel movement as of yet. Encouraged incentive spirometer use and activity as tolerated. Patient WBC trending down and patient is afebrile. Patient denies any chest pain or shortness of breath. Review of systems: Constitutional: No reports of fatigue, fever, or chills Cardiovascular: No reports of chest pain or palpitations Respiratory: No reports of shortness of breath or cough GI: No reports of nausea, vomiting, or diarrhea : No reports of dysuria or retention Neurovascular: No reports of weakness or numbness, reports right knee pain and swelling has improved after aspiration All medications have been reviewed Active Medications Hydrocodone Bitart/Acetaminophen (Hydrocodone/Apap 5-325mg 1 Each Tab) 1 each PO Q4HR PRN PRN Reason: Moderate Pain Last Admin: 07/07/21 11:14 Dose: 1 each Documented by: Alvimopan (Alvimopan 12 Mg Capsule) 12 mg PO BID [facility] Stop: 07/11/21 21:01 Last Admin: 07/08/21 20:55 Dose: 12 mg Documented by: Diphenhydramine HCl (Diphenhydramine 50 Mg/Ml 1 Ml Vial) 12.5 mg IVP Q6HR PRN PRN Reason: Itching Famotidine (Famotidine 20 Mg/2 Ml Vial) 20 mg IV BID [facility] Last Admin: 07/08/21 20:55 Dose: 20 mg Documented by: Heparin Sodium (Porcine) (Heparin Sodium,Porcine/Pf 5,000 Unit/0.5 Ml Syringe) 5,000 unit SQ Q8H [facility] Last Admin: 07/08/21 20:55 Dose: 5,000 unit Documented by: Hydromorphone HCl (Hydromorphone 1 Mg/Ml 1 Ml Syringe) 1 mg IVP Q3HR PRN PRN Reason: Severe Pain Last Admin: 07/07/21 12:20 Dose: 1 mg Documented by: Hydromorphone HCl (Hydromorphone 1 Mg/Ml 1 Ml Syringe) 2 mg IVP Q2HR PRN PRN Reason: Pain Last Admin: 07/08/21 22:14 Dose: 2 mg Documented by: Lactated Ringer's (Lactated Ringers) 1,000 mls @ 20 mls/hr IV .Q24H [facility] Last Admin: 07/08/21 07:09 Dose: Not Given Documented by: Ropivacaine 250 mg/ Fentanyl Citrate 1,250 mcg/ Sodium Chloride 250 mls @ 0 mls/hr EPIDURAL .Q0M PRN; Protocol PRN Reason: Pain Control Last Admin: 07/06/21 08:22 Dose: 10 mls/hr Documented by: Piperacillin Sod/Tazobactam (Sod 3.375 gm/ Sodium Chloride) 100 mls @ 25 mls/hr IVPB Q8H [facility]; Protocol Last Admin: 07/08/21 17:01 Dose: 25 mls/hr Documented by: Potassium Chloride/Dextrose/Sod Cl (D5%-Ns-Kcl 20 Meq/L Iv Solution) 1,000 mls @ 100 mls/hr IV .Q10H [facility] Last Admin: 07/08/21 17:03 Dose: 100 mls/hr Documented by: Ketorolac Tromethamine (Ketorolac 15 Mg/Ml 1 Ml Vial) 15 mg IVP Q6H [facility] Stop: 07/12/21 15:01 Last Admin: 07/08/21 20:55 Dose: 15 mg Documented by: Metoclopramide HCl (Metoclopramide 5 Mg/Ml 2 Ml Vial) 10 mg IVP Q6HR PRN PRN Reason: Nausea and Vomiting Nalbuphine HCl (Nalbuphine 10 Mg/Ml (1 Ml Amp)) 2.5 mg IV Q4HR PRN PRN Reason: Itching Naloxone HCl (Naloxone 0.4 Mg/Ml 1 Ml Vial) 0.2 mg IV Q2M PRN PRN Reason: Opioid Reversal Ondansetron HCl (Ondansetron 4 Mg/2 Ml Vial) 4 mg IVP Q8HR PRN PRN Reason: Nausea And Vomiting Last Admin: 07/06/21 08:30 Dose: 4 mg Documented by: PHYSICAL EXAMINATION: Patient is sitting up in the chair comfortably, no acute distress, awake alert and oriented.. HEENT: Normocephalic. Neck is supple. Pupils reactive. Nostrils clear. Oral cavity is moist. Neck reveals no JVD, carotid bruits, or thyromegaly. CHEST EXAMINATION: Trachea is central. Symmetrical expansion. Lung frazier clear to auscultation and percussion. CARDIAC: Normal S1, S2 with no gallops. No murmurs ABDOMEN: Soft. Bowel sounds diminished. Surgical site is bandaged.. No organomegaly. No abdominal bruits. Extremities: reveal no edema. No clubbing or cyanosis Neurologically awake, alert, oriented x3 with well-coordinated movements. No focal deficits noted Skin: No rash or skin lesions. Psychiatric: Cooperative. Nonsuicidal Musculoskeletal: right knee joint swelling and pain significantly improved. no deformity. normal range of motion of the right knee Assessment: Status post low anterior sigmoid resection and partial omentectomy Recently diagnosed colovesical fistula. Leukocytosis likely due to post operative inflammatory reaction. hyponatremia possibly secondary to IV fluids of D5/.45 and will change to D5.9 and repeat labs right knee pain status post aspiration Previous history of smoking DVT prophylaxis. GI prophylaxis Full code Plan: Patient will be continued IV hydration with D5/.9 as patient was a bit hyponatremic, improving. pain management and bowel regimen per surgical services. Encourage incentive spirometry and ambulation. On antibiotics in the form of Zosyn. PT/OT following Right knee pain and xray shows no fracture or dislocation with severe arthropathy and large suprapatellar bursal fluid collection. Patient was seen by ortho and had aspiration of the fluid on the right knee, Recommend using a brace as needed while ambulating Continue indwelling varela catheter until clear by Dr. Celeste. Epidural has been discontinued. Patient continued on clear liquid diet per surgical recommendations. No reports of gas or bowel movement, less belching. Encouraged increased activity as tolerated. We will continue to follow with surgery during hospitalization. Thank you for this consultation. The impression and plan of care has been dictated by Danielle Way, Nurse Practitioner as directed. Dr. John MD I have performed a history and examination and MDM of this patient, discussed the same with the dictator, and agree with the dictator's assessment and plan as written ,documented as a scribe. Based on total visit time, I have performed more than 50% of the visit. Objective - Vital Signs Vital signs: Vital Signs Temp 98.0 F 07/08/21 08:02 Pulse 86 07/08/21 08:02 Resp 16 07/08/21 08:02 BP 151/83 07/08/21 08:02 Pulse Ox 99 07/08/21 08:02 Intake & Output 07/07/21 07/08/21 07/08/21 18:59 06:59 18:59 Intake Total 100 Output Total 850 1300 550 Balance -750 -1300 -550 Intake: Intake, IV Titration 100 Amount Piperacillin-Tazobactam 3 100 .375 gm In Sodium Chloride 0.9% 100 ml @ 25 mls/hr IVPB Q8H [facility] Rx#: [id number] Output: Urine 850 1300 550 Other: Voiding Method Indwelling Catheter Indwelling Catheter Indwelling Catheter - Labs CBC & Chem 7: 07/08/21 05:16 07/08/21 05:16 Labs: Abnormal Lab Results - Last 24 Hours (Table) 07/07/21 07/07/21 Range/Units 05:32 05:32 WBC 12.51 H (4.50-10.00) X 10*3/uL RBC 4.34 L (4.40-5.60) X 10*6/uL Hgb 12.8 L (13.0-17.0) g/dL MCHC 31.4 L (32.0-37.0) g/dL MPV 8.9 L (9.5-12.2) fL Immature Gran # 0.07 H (0.00-0.04) X 10*3/uL Neutrophils # 10.03 H (1.80-7.70) X 10*3/uL Monocytes # 1.22 H (0.20-1.00) X 10*3/uL Sodium 133 L (135-145) mmol/L Anion Gap 9.40 L (10.00-18.00) mmol/L BUN 5.6 L (9.0-27.0) mg/dL BUN/Creatinine Ratio 5.68 L (12.00-20.00) Ratio Microbiology - Last 24 Hours (Table) 07/07/21 18:06 Gram Stain - Preliminary Knee - Right Body Fluid Culture - Preliminary
[2021-07-08] MEDS ORDERED: IPRATROPIUM-ALBUTEROL 3 ML NEB INHALATION PRN (22:48)
[2021-07-09] MEDS ORDERED: IPRATROPIUM-ALBUTEROL 3 ML NEB INHALATION SCH
[2021-07-09] MEDS: KETOROLAC 15 MG/ML 1 ML VIAL IVP SCH ×4 (04:14→20:15)
[2021-07-09] MEDS: HEPARIN SODIUM,PORCINE/PF 5,000 UNIT/0.5 ML SYRINGE SQ SCH ×3 (04:14→20:16)
[2021-07-09] MEDS: PIPERACILLIN-TAZOBACTAM 3.375 GM in SODIUM CHLORIDE 0.9% 100 ML IVPB SCH ×3 (04:14→17:37)
[2021-07-09] MEDS: LACTATED RINGERS 1,000 ML IV SCH (08:20)
[2021-07-09] MEDS: D5-0.9% NACL WITH KCL 20 MEQ/L 1,000 ML IV SCH ×3 (08:20→20:16)
[2021-07-09] MEDS: ALVIMOPAN 12 MG CAPSULE PO SCH (08:22)
[2021-07-09] MEDS: FAMOTIDINE 20 MG/2 ML VIAL IV SCH ×2 (08:23→20:16)
[2021-07-09 10:02] LABS: Basophils # (A) 0.04 X 10*3/uL (0.00-0.10); Basophils % (A) 0.3 %; Eosinophils % (A) 3.9 %; HCT 40.5 % (39.6-50.0); HGB 12.7 g/dL (13.0-17.0); Immature Grans, Automated 1.2 %; Lymphocytes # (A) 1.53 X 10*3/uL (0.90-5.00); MCH 29.6 pg (27.0-32.0); MCHC 31.4 g/dL (32.0-37.0); MCV 94.4 fL (80.0-97.0); Mean Platelet Volume 8.9 fL (9.5-12.2); Monocytes # (A) 0.99 X 10*3/uL (0.20-1.00); Monocytes % (A) 7.8 %; NRBC Per 100 WBC 0 /100 WBCS (0.0-0.0); Neutrophils # (A) 9.52 X 10*3/uL (1.80-7.70); Neutrophils % (A) 74.8 %; Platelet Count 417 X 10*3/uL (140-440); RBC 4.29 X 10*6/uL (4.40-5.60); RDW 14.2 % (11.5-14.5); WBC 12.73 X 10*3/uL (4.50-10.00)
[2021-07-09 10:04] LABS: African American GFR (CKD) 83.5 (60.0-200.0); Anion Gap 11.8 mmol/L (10.00-18.00); Blood Urea Nitrogen 5.5 mg/dL (9.0-27.0); Calcium 9.1 mg/dL (8.7-10.3); Carbon Dioxide 23.2 mmol/L (20.0-27.5); Non-African American GFR(CKD) 72.1 (60.0-200.0)
--- NOTE | 2021-07-09 11:19 | P.PN ---
Subjective Progress Note Date: 07/09/21 CHIEF COMPLAINT: Colovesical fistula HISTORY OF PRESENT ILLNESS: Patient is postop day #5 status post lower anterior sigmoid resection, mobilization of splenic flexure and partial omentectomy. Patient reports that he is feeling better today. His abdominal pain is improving. He is having bowel movements and flatus. Denies any nausea or vomiting. He is requesting advancement of diet. He has been up and ambulating. His knee pain has improved after the knee aspiration by orthopedics. Afebrile. WBC is up at 12.73 hemoglobin 12.7 platelets 417 Symlin 37 potassium 4.0 creatinine 1.1 PHYSICAL EXAM: VITAL SIGNS: Reviewed. GENERAL: Well-developed in no acute distress. HEENT: No sclera icterus. Extraocular movements grossly intact. Moist buccal mucosa. Head is atraumatic, normocephalic. ABDOMEN: Soft. Mildly distended. Incision site clean dry and intact Abdominal binder in place. NEUROLOGIC: Alert and oriented. Cranial nerves II through XII grossly intact. ASSESSMENT: 1. Colovesical fistula and active diverticulitis status post lower anterior sigmoid resection, mobilization of splenic flexure and partial omentectomy 2. Right knee effusion followed by orthopedics PLAN: -Keep Avila catheter in place -Advance diet to full liquids and then low fiber diet starting tomorrow morning -Continue pain medication as needed -Encourage patient to ambulate -Encourage patient to use incentive spirometer -Continue antibiotics -DVT prophylaxis subcu heparin and GI prophylaxis Pepcid Physician Landscape Architecture Professor note has been reviewed by physician. Signing provider agrees with the documented findings, assessment, and plan of care. I have personally seen and examined the patient, reviewed the SEO PROFESSIONAL /PAs history, exam and MDM and agree with the assessment and plan as written. Based on total visit time, I have performed more than 50% of the visit. As above: Patient doing well today. 2 bowel movements thus far. He is hungry. Begin full liquids. Continue ambulation. Objective - Vital Signs Vital signs: Vital Signs Temp 98.6 F 07/09/21 08:00 Pulse 88 07/09/21 08:00 Resp 18 07/09/21 08:00 BP 148/87 07/09/21 08:00 Pulse Ox 98 07/09/21 08:00 Intake & Output 05/03/22 05/04/22 05/04/22 18:59 06:59 18:59 Intake Total 2160 Output Total 2550 2125 1000 Balance -390 -5 -1000 Weight 106 kg Intake: Oral 2160 Output: Urine 2550 2125 1000 Other: Voiding Method Indwelling Catheter Indwelling Catheter Indwelling Catheter # Bowel Movements 2 - Labs CBC & Chem 7: 07/09/21 03:31 07/09/21 03:31 Labs: Abnormal Lab Results - Last 24 Hours (Table) 07/09/21 07/09/21 Range/Units 03:31 03:31 WBC 12.73 H (4.50-10.00) X 10*3/uL RBC 4.29 L (4.40-5.60) X 10*6/uL Hgb 12.7 L (13.0-17.0) g/dL MCHC 31.4 L (32.0-37.0) g/dL MPV 8.9 L (9.5-12.2) fL Immature Gran # 0.15 H (0.00-0.04) X 10*3/uL Neutrophils # 9.52 H (1.80-7.70) X 10*3/uL Eosinophils # 0.50 H (0.04-0.35) X 10*3/uL BUN 5.5 L (9.0-27.0) mg/dL BUN/Creatinine Ratio 5.00 L (12.00-20.00) Ratio Microbiology - Last 24 Hours (Table) 07/07/21 18:06 Gram Stain - Preliminary Knee - Right Body Fluid Culture - Preliminary
[2021-07-09] MEDS: HYDROcodone/APAP 5-325MG 1 EACH TAB PO PRN ×2 (12:35→16:19)
[2021-07-09] MEDS: ONDANSETRON 4 MG/2 ML VIAL IVP PRN (12:36)
--- NOTE | 2021-07-09 13:02 | P.PN ---
Subjective Progress Note Date: 07/09/21 Patient is a 61-year-old male without significant past medical history, previous history of smoking and recently diagnosed colovesical fistula was admitted to the hospital for elective surgery. Patient underwent low anterior sigmoid resection, mobilization of splenic flexure and partial omentectomy. Recent CT of abdomen pelvis on 05/21/2021 showed areas present within the urinary bladder. There is prostate enlargement. Correlate for diverticulitis. Cholelithiasis and hepatic steatosis. Patient is s/p surgery and currently able to get up from the bed. No complaints of chest pain or shortness of breath. Patient is still on epidural. No fever no chills. No cough or sputum production.. No leg swelling. Denied any dizziness or lightheadedness. No nausea or vomiting. Laboratory data showed WBC 15.28 hemoglobin 13.4 and platelets 364 Sodium 136 potassium 4.5 chloride 102 bicarb is 24.3 BUN 12.9 creatinine 1.3 calcium 9.2. 07/06/2021 Patient is currently ambulating in the hallway. No complaints of chest pain or shortness of breath. States that his abdomen feels bloated. Not passing flatus. No bowel movement yet. Pain is controlled with medications. No episo marci of vomiting. No fever no chills. Laboratory data showed WBC trending down to 12.5 hemoglobin 12.4 and platelets 357 Sodium 134 potassium 3.9 chloride 101 bicarb is 23.4 BUN 9.2 and creatinine 1.0. Calcium 8.5. 07/07/2021 Patient is seen and evaluated in follow-up status post repair of a colovesical fistula with Dr. Celeste and being closely monitored. Patient reports to no gas and has not had a bowel movement yet. Patient is maintained on clear liquids and also IV hydration of D5 45 with potassium and patient becoming a bit hyponatremic and we will transition to the IV fluids and recommend repeat labs. Patient is having some severe 10/10 pain of the right knee and reports to being seen in the outpatient setting for "bone on bone issues" and needs surgery although hadn't been bothering him and has a brace that his son is bringing. Patient denies any trauma or injury and reports while attempting to get out of the bed this am he felt the pain and thought he may have twisted it. Will get right knee xray and possible ortho consult. Patient is afebrile. Patient denies chest pain or shortness of breath. Patient continues on epidural for pain and will continue indwelling varela catheter. 07/08/2021 Patient is seen today and was evaluated by orthopedics for the right knee pain and patient underwent bedside aspiration of the fluid collection and specimen was sent for analysis which is showing no growth. Patient reports to feeling much better and being able to walk. Patient is working with physical therapy. Patient is maintained on clear liquid diet per surgical recommendations and will continue. Sodium improved and will continue current IV hydration. Patient denies passing gas or bowel movement as of yet. Encouraged incentive spirometer use and activity as tolerated. Patient WBC trending down and patient is afebrile. Patient denies any chest pain or shortness of breath. 07/09/2021 Patient is seen and evaluated in follow-up this morning and has been up and walking more frequently reports to improvement in right knee pain and also is passing gas and having bowel movements. Patient continues with indwelling Varela catheter per surgical services and will continue at this time. This morning's labs reveal a mildly elevated WBC of 12.73 with a hemoglobin stable at 12.7, sodium is 137 with a potassium of 4.0, creatinine 1.1 and calcium is 9.1. Uric acid ordered and pending at this time. Vital signs are stable and patient is afebrile. Patient denies nausea or vomiting and is being slowly advanced to full liquids with possible low fiber diet in the morning. The culture from the right knee continues to show no growth after 24 hours. Patient is also continue d on IV Zosyn and will continue at this time. Review of systems: Constitutional: No reports of fatigue, fever, or chills Cardiovascular: No reports of chest pain or palpitations Respiratory: No reports of shortness of breath or cough GI: No reports of nausea, vomiting, or diarrhea : No reports of dysuria or retention Neurovascular: No reports of weakness or numbness, reports right knee pain and swelling has improved after aspiration All medications have been reviewed Active Medications Hydrocodone Bitart/Acetaminophen (Hydrocodone/Apap 5-325mg 1 Each Tab) 1 each PO Q4HR PRN PRN Reason: Moderate Pain Last Admin: 07/09/21 12:35 Dose: 1 each Documented by: Albuterol/Ipratropium (Ipratropium-Albuterol 3 Ml Neb) 3 ml INHALATION RT-Q4H PRN PRN Reason: Shortness Of Breath Or Wheezing Alvimopan (Alvimopan 12 Mg Capsule) 12 mg PO BID COUNTS [facility]CLUDE 234 BEDS AT THE [facility] Stop: 07/11/21 21:01 Last Admin: 07/09/21 08:22 Dose: 12 mg Documented by: Diphenhydramine HCl (Diphenhydramine 50 Mg/Ml 1 Ml Vial) 12.5 mg IVP Q6HR PRN PRN Reason: Itching Famotidine (Famotidine 20 Mg/2 Ml Vial) 20 mg IV BID COUNTS INCLUDE 234 BEDS AT THE [facility] Last Admin: 07/09/21 08:23 Dose: 20 mg Documented by: Heparin Sodium (Porcine) (Heparin Sodium,Porcine/Pf 5,000 Unit/0.5 Ml Syringe) 5,000 unit SQ Q8H COUNTS INCLUDE 234 BEDS AT THE [facility] Last Admin: 07/09/21 12:36 Dose: 5,000 unit Documented by: Hydromorphone HCl (Hydromorphone 1 Mg/Ml 1 Ml Syringe) 1 mg IVP Q3HR PRN PRN Reason: Severe Pain Last Admin: 07/07/21 12:20 Dose: 1 mg Documented by: Hydromorphone HCl (Hydromorphone 1 Mg/Ml 1 Ml Syringe) 2 mg IVP Q2HR PRN PRN Reason: Pain Last Admin: 07/08/21 22:14 Dose: 2 mg Documented by: Lactated Ringer's (Lactated Ringers) 1,000 mls @ 20 mls/hr IV .Q24H COUNTS INCLUDE 234 BEDS AT THE [facility] Last Admin: 07/09/21 08:20 Dose: Not Given Documented by: Ropivacaine 250 mg/ Fentanyl Citrate 1,250 mcg/ Sodium Chloride 250 mls @ 0 mls/hr EPIDURAL .Q0M PRN; Protocol PRN Reason: Pain Control Last Admin: 07/06/21 08:22 Dose: 10 mls/hr Documented by: Piperacillin Sod/Tazobactam (Sod 3.375 gm/ Sodium Chloride) 100 mls @ 25 mls/hr IVPB Q8H COUNTS INCLUDE 234 BEDS AT THE [facility]; Protocol Last Admin: 07/09/21 12:36 Dose: 25 mls/hr Documented by: Potassium Chloride/Dextrose/Sod Cl (D5%-Ns-Kcl 20 Meq/L Iv Solution) 1,000 mls @ 100 mls/hr IV .Q10H COUNTS INCLUDE 234 BEDS AT THE [facility] Last Admin: 07/09/21 08:22 Dose: 100 mls/hr Documented by: Ketorolac Tromethamine (Ketorolac 15 Mg/Ml 1 Ml Vial) 15 mg IVP Q6H [facility] Stop: 07/12/21 15:01 Last Admin: 07/09/21 08:23 Dose: 15 mg Documented by: Metoclopramide HCl (Metoclopramide 5 Mg/Ml 2 Ml Vial) 10 mg IVP Q6HR PRN PRN Reason: Nausea and Vomiting Nalbuphine HCl (Nalbuphine 10 Mg/Ml (1 Ml Amp)) 2.5 mg IV Q4HR PRN PRN Reason: Itching Naloxone HCl (Naloxone 0.4 Mg/Ml 1 Ml Vial) 0.2 mg IV Q2M PRN PRN Reason: Opioid Reversal Ondansetron HCl (Ondansetron 4 Mg/2 Ml Vial) 4 mg IVP Q8HR PRN PRN Reason: Nausea And Vomiting Last Admin: 07/09/21 12:36 Dose: 4 mg Documented by: PHYSICAL EXAMINATION: Patient is sitting up in the chair comfortably, awake alert and oriented 3, well-developed, well-nourished.. HEENT: Normocephalic. Neck is supple. Pupils reactive. Nostrils clear. Oral cavity is moist. Neck reveals no JVD, carotid bruits, or thyromegaly. CHEST EXAMINATION: Breath sounds diminished bilaterally with no wheezing or rhonchi noted CARDIAC: S1, S2 muffled ABDOMEN: Soft. Bowel sounds diminished. Surgical site is bandaged.. No organomegaly. No abdominal bruits. Extremities: reveal no edema. No clubbing or cyanosis Neurologically awake, alert, oriented x3 with well-coordinated movements. No focal deficits noted Skin: No rash or skin lesions. Psychiatric: Cooperative. Nonsuicidal Musculoskeletal: right knee joint swelling and pain significantly improved. no deformity. Full range of motion of the right knee Assessment: Status post low anterior sigmoid resection and partial omentectomy Recently diagnosed colovesical fistula. Leukocytosis likely due to post operative inflammatory reaction. hyponatremia possibly secondary to IV fluids of D5/.45, improving right knee pain status post aspiration Previous history of smoking DVT prophylaxis. GI prophylaxis Full code Plan: Patient will be continued IV hydration with D5/.9 as patient was a bit hyponatremic, improving. pain management and bowel regimen per surgical services . Encourage incentive spirometry and ambulation. On antibiotics in the form of Zosyn. WBC mildly elevated and recommend repeat labs in the morning and continuing with antibiotics at this time. PT/OT following and patient is working daily at increasing activity as tolerated. Patient has had multiple walks today. Patient was able to get up and shower today. Patient reports to passing gas and having bowel movements. Recommend to continue with indwelling Varela catheter per surgical and will continue. Patient was also evaluated by orthopedics and underwent right knee aspiration and the cultures thus far continue to be negative. Uric acid ordered and pending at this time. Diet is being advanced slowly to full liquids and is tolerating will be advanced to full fiber per surgery tomorrow. Will follow-up with repeat labs in the morning. We will continue to follow with surgery during hospitalization. Thank you for this consultation. The impression and plan of care has been dictated by Danielle Way, Nurse Practitioner as directed. Dr. Eber MD I have performed a history and examination and MDM of this patient, discussed the same with the dictator, and agree with the dictator's assessment and plan as written ,documented as a scribe. Based on total visit time, I have performed more than 50% of the visit. Objective - Vital Signs Vital signs: Vital Signs Temp 98.6 F 07/09/21 08:00 Pulse 88 07/09/21 08:00 Resp 18 07/09/21 08:00 BP 148/87 07/09/21 08:00 Pulse Ox 98 07/09/21 08:00 Intake & Output 07/08/21 07/09/21 07/09/21 18:59 06:59 18:59 Intake Total 2160 Output Total 2550 2125 Balance -390 -2125 Weight 106 kg Intake: Oral 2160 Output: Urine 2550 2125 Other: Voiding Method Indwelling Catheter Indwelling Catheter - Labs CBC & Chem 7: 07/09/21 03:31 07/09/21 03:31 Labs: Microbiology - Last 24 Hours (Table) 07/07/21 18:06 Gram Stain - Preliminary Knee - Right Body Fluid Culture - Preliminary
[2021-07-10] MEDS: KETOROLAC 15 MG/ML 1 ML VIAL IVP SCH ×3 (02:47→16:18)
[2021-07-10] MEDS: PIPERACILLIN-TAZOBACTAM 3.375 GM in SODIUM CHLORIDE 0.9% 100 ML IVPB SCH ×2 (02:47→10:58)
[2021-07-10] MEDS: HEPARIN SODIUM,PORCINE/PF 5,000 UNIT/0.5 ML SYRINGE SQ SCH ×2 (02:51→12:32)
[2021-07-10 03:53] VITALS: RESP 16
[2021-07-10 07:39] LABS: African American GFR (CKD) 83 (>60 ml/min/1.73 sqM); Anion Gap 8 mmol/L; Blood Urea Nitrogen 7 mg/dL (9-20); Calcium 8.4 mg/dL (8.4-10.2); Carbon Dioxide 23 mmol/L (22-30); Chloride 106 mmol/L (98-107); Glucose 101 mg/dL (74-99); Non-African American GFR(CKD) 72 (>60 ml/min/1.73 sqM); Potassium 3.8 mmol/L (3.5-5.1); Sodium 137 mmol/L (137-145)
[2021-07-10 09:31] LABS: Basophils # (A) 0.03 X 10*3/uL (0.00-0.10); Basophils % (A) 0.3 %; Eosinophils # (A) 0.44 X 10*3/uL (0.04-0.35); Eosinophils % (A) 4.5 %; HCT 36.6 % (39.6-50.0); HGB 11.6 g/dL (13.0-17.0); Immature Grans, Automated 1.5 %; Lymphocytes # (A) 1.34 X 10*3/uL (0.90-5.00); Lymphocytes % (A) 13.8 %; MCH 29.3 pg (27.0-32.0); MCHC 31.7 g/dL (32.0-37.0); MCV 92.4 fL (80.0-97.0); Mean Platelet Volume 8.6 fL (9.5-12.2); Monocytes # (A) 0.75 X 10*3/uL (0.20-1.00); Monocytes % (A) 7.7 %; NRBC Per 100 WBC 0 /100 WBCS (0.0-0.0); Neutrophils # (A) 6.98 X 10*3/uL (1.80-7.70); Neutrophils % (A) 72.2 %; Platelet Count 342 X 10*3/uL (140-440); RBC 3.96 X 10*6/uL (4.40-5.60); WBC 9.69 X 10*3/uL (4.50-10.00)
[2021-07-10] MEDS: LACTATED RINGERS 1,000 ML IV SCH (09:49)
[2021-07-10] MEDS: FAMOTIDINE 20 MG/2 ML VIAL IV SCH (10:13)
--- NOTE | 2021-07-10 11:10 | P.PN ---
Subjective Progress Note Date: 07/10/21 Patient is a 61-year-old male without significant past medical history, previous history of smoking and recently diagnosed colovesical fistula was admitted to the hospital for elective surgery. Patient underwent low anterior sigmoid resection, mobilization of splenic flexure and partial omentectomy. Recent CT of abdomen pelvis on 05/21/2021 showed areas present within the urinary bladder. There is prostate enlargement. Correlate for diverticulitis. Cholelithiasis and hepatic steatosis. Patient is s/p surgery and currently able to get up from the bed. No complaints of chest pain or shortness of breath. Patient is still on epidural. No fever no chills. No cough or sputum production.. No leg swelling. Denied any dizziness or lightheadedness. No nausea or vomiting. Laboratory data showed WBC 15.28 hemoglobin 13.4 and platelets 364 Sodium 136 potassium 4.5 chloride 102 bicarb is 24.3 BUN 12.9 creatinine 1.3 calcium 9.2. 07/06/2021 Patient is currently ambulating in the hallway. No complaints of chest pain or shortness of breath. States that his abdomen feels bloated. Not passing flatus. No bowel movement yet. Pain is controlled with medications. No episo marci of vomiting. No fever no chills. Laboratory data showed WBC trending down to 12.5 hemoglobin 12.4 and platelets 357 Sodium 134 potassium 3.9 chloride 101 bicarb is 23.4 BUN 9.2 and creatinine 1.0. Calcium 8.5. 07/07/2021 Patient is seen and evaluated in follow-up status post repair of a colovesical fistula with Dr. Celeste and being closely monitored. Patient reports to no gas and has not had a bowel movement yet. Patient is maintained on clear liquids and also IV hydration of D5 45 with potassium and patient becoming a bit hyponatremic and we will transition to the IV fluids and recommend repeat labs. Patient is having some severe 10/10 pain of the right knee and reports to being seen in the outpatient setting for "bone on bone issues" and needs surgery although hadn't been bothering him and has a brace that his son is bringing. Patient denies any trauma or injury and reports while attempting to get out of the bed this am he felt the pain and thought he may have twisted it. Will get right knee xray and possible ortho consult. Patient is afebrile. Patient denies chest pain or shortness of breath. Patient continues on epidural for pain and will continue indwelling varela catheter. 07/08/2021 Patient is seen today and was evaluated by orthopedics for the right knee pain and patient underwent bedside aspiration of the fluid collection and specimen was sent for analysis which is showing no growth. Patient reports to feeling much better and being able to walk. Patient is working with physical therapy. Patient is maintained on clear liquid diet per surgical recommendations and will continue. Sodium improved and will continue current IV hydration. Patient denies passing gas or bowel movement as of yet. Encouraged incentive spirometer use and activity as tolerated. Patient WBC trending down and patient is afebrile. Patient denies any chest pain or shortness of breath. 07/09/2021 Patient is seen and evaluated in follow-up this morning and has been up and walking more frequently reports to improvement in right knee pain and also is passing gas and having bowel movements. Patient continues with indwelling Varela catheter per surgical services and will continue at this time. This morning's labs reveal a mildly elevated WBC of 12.73 with a hemoglobin stable at 12.7, sodium is 137 with a potassium of 4.0, creatinine 1.1 and calcium is 9.1. Uric acid ordered and pending at this time. Vital signs are stable and patient is afebrile. Patient denies nausea or vomiting and is being slowly advanced to full liquids with possible low fiber diet in the morning. The culture from the right knee continues to show no growth after 24 hours. Patient is also continue d on IV Zosyn and will continue at this time. 07/10/2021 Patient is seen in follow-up today currently getting into the shower. Patient tolerating advanced diet of full liquids and being advanced to low fiber per surgical recommendations. Patient is passing gas and having bowel movements. Patient continues with indwelling Varela catheter and will be going home with it per surgical recommendations. Patient's right knee pain much improved and able to walk and has been walking frequently in the halls. WBC improved at 9.69, hemoglobin is stable at 11.6 with no active bleeding noted, sodium is 137, potassium 3.8, current creatinine 1.10. Patient is afebrile and denies any chest pain or shortness of breath. Patient denies nausea or vomiting and is tolerating diet. Encouraged continued use of incentive spirometer and activity increasing as tolerated. Review of systems: Constitutional: No reports of fatigue, fever, or chills Cardiovascular: No reports of chest pain or palpitations Respiratory: No reports of shortness of breath or cough GI: No reports of nausea, vomiting, or diarrhea : No reports of dysuria or retention Neurovascular: No reports of weakness or numbness, reports right knee pain and swelling has improved after aspiration All medications have been reviewed Active Medications Hydrocodone Bitart/Acetaminophen (Hydrocodone/Apap 5-325mg 1 Each Tab) 1 each PO Q4HR PRN PRN Reason: Moderate Pain Last Admin: 07/09/21 12:35 Dose: 1 each Documented by: Albuterol/Ipratropium (Ipratropium-Albuterol 3 Ml Neb) 3 ml INHALATION RT-Q4H PRN PRN Reason: Shortness Of Breath Or Wheezing Alvimopan (Alvimopan 12 Mg Capsule) 12 mg PO BID [facility] Stop: 07/11/21 21:01 Last Admin: 07/09/21 08:22 Dose: 12 mg Documented by: Diphenhydramine HCl (Diphenhydramine 50 Mg/Ml 1 Ml Vial) 12.5 mg IVP Q6HR PRN PRN Reason: Itching Famotidine (Famotidine 20 Mg/2 Ml Vial) 20 mg IV BID [facility] Last Admin: 07/09/21 08:23 Dose: 20 mg Documented by: Heparin Sodium (Porcine) (Heparin Sodium,Porcine/Pf 5,000 Unit/0.5 Ml Syringe) 5,000 unit SQ Q8H [facility] Last Admin: 07/09/21 12:36 Dose: 5,000 unit Documented by: Hydromorphone HCl (Hydromorphone 1 Mg/Ml 1 Ml Syringe) 1 mg IVP Q3HR PRN PRN Reason: Severe Pain Last Admin: 07/07/21 12:20 Dose: 1 mg Documented by: Hydromorphone HCl (Hydromorphone 1 Mg/Ml 1 Ml Syringe) 2 mg IVP Q2HR PRN PRN Reason: Pain Last Admin: 07/08/21 22:14 Dose: 2 mg Documented by: Lactated Ringer's (Lactated Ringers) 1,000 mls @ 20 mls/hr IV .Q24H [facility] Last Admin: 05/04/22 08:20 Dose: Not Given Documented by: Ropivacaine 250 mg/ Fentanyl Citrate 1,250 mcg/ Sodium Chloride 250 mls @ 0 mls/hr EPIDURAL .Q0M PRN; Protocol PRN Reason: Pain Control Last Admin: 07/06/21 08:22 Dose: 10 mls/hr Documented by: Piperacillin Sod/Tazobactam (Sod 3.375 gm/ Sodium Chloride) 100 mls @ 25 mls/hr IVPB Q8H NEERAJ; Protocol Last Admin: 07/09/21 12:36 Dose: 25 mls/hr Documented by: Potassium Chloride/Dextrose/Sod Cl (D5%-Ns-Kcl 20 Meq/L Iv Solution) 1,000 mls @ 100 mls/hr IV .Q10H [facility]ER[facility] Last Admin: 07/09/21 08:22 Dose: 100 mls/hr Documented by: Ketorolac Tromethamine (Ketorolac 15 Mg/Ml 1 Ml Vial) 15 mg IVP Q6H [facility] Stop: 07/12/21 15:01 Last Admin: 07/09/21 08:23 Dose: 15 mg Documented by: Metoclopramide HCl (Metoclopramide 5 Mg/Ml 2 Ml Vial) 10 mg IVP Q6HR PRN PRN Reason: Nausea and Vomiting Nalbuphine HCl (Nalbuphine 10 Mg/Ml (1 Ml Amp)) 2.5 mg IV Q4HR PRN PRN Reason: Itching Naloxone HCl (Naloxone 0.4 Mg/Ml 1 Ml Vial) 0.2 mg IV Q2M PRN PRN Reason: Opioid Reversal Ondansetron HCl (Ondansetron 4 Mg/2 Ml Vial) 4 mg IVP Q8HR PRN PRN Reason: Nausea And Vomiting Last Admin: 07/09/21 12:36 Dose: 4 mg Documented by: PHYSICAL EXAMINATION: Patient is sitting up in the chair comfortably, awake alert and oriented 3, well-developed, well-nourished.. HEENT: Normocephalic. Neck is supple. Pupils reactive. Nostrils clear. Oral cavity is moist. Neck reveals no JVD, carotid bruits, or thyromegaly. CHEST EXAMINATION: Breath sounds diminished bilaterally with no wheezing or rhonchi noted CARDIAC: S1, S2 muffled ABDOMEN: Soft. Bowel sounds diminished. Surgical site is dry and intact and binder noted.. No organomegaly. No abdominal bruits. Extremities: reveal no edema. No clubbing or cyanosis Neurologically awake, alert, oriented x3 with well-coordinated movements. No focal deficits noted Skin: No rash or skin lesions. Psychiatric: Cooperative. Nonsuicidal Musculoskeletal: right knee joint swelling and pain significantly improved. no deformity. Full range of motion of the right knee, steady gait Assessment: Status post low anterior sigmoid resection and partial omentectomy Recently diagnosed colovesical fistula. Leukocytosis likely due to post operative inflammatory reaction. Improved hyponatremia possibly secondary to IV fluids of D5/.45, improved right knee pain status post aspiration Previous history of smoking DVT prophylaxis. GI prophylaxis Full code Plan: Patient will be continued on full liquids and being advanced to low fiber per surgical services. Labs within normal limits and WBC within normal limits today. Patient is afebrile and has been passing gas and having bowel movements. Patient continues with indwelling Varela catheter and will continue on discharge in the outpatient setting per surgical recommendations. Encouraged incentive spirometry and ambulation. On antibiotics in the form of Zosyn. Patient reports to passing gas and having bowel movements. Recommend to continue with indwelling Varela catheter per surgical and will continue. She was evaluated for the right knee pain status post aspiration of the effusion and cultures are negative and patient will follow-up with orthopedics in the outpatient setting. Uric acid was negative and patient reports to improvement in the knee and able to walk. We will continue to follow with surgery during hospitalization. Patient anticipates possible discharge today. Thank you for this consultation. The impression and plan of care has been dictated by Danielle Way, Nurse Practitioner as directed. Dr. Eber MD I have performed a history and examination and MDM of this patient, discussed the same with the dictator, and agree with the dictator's assessment and plan as written ,documented as a scribe. Based on total visit time, I have performed more than 50% of the visit. Objective - Vital Signs Vital signs: Vital Signs Temp 98.2 F 07/10/21 07:51 Pulse 86 07/10/21 07:51 Resp 16 07/10/21 07:51 BP 127/79 07/10/21 07:51 Pulse Ox 96 07/10/21 07:51 Intake & Output 07/09/21 07/10/21 07/10/21 18:59 06:59 18:59 Intake Total 296 Output Total 1900 1400 Balance -1900 -1400 296 Intake: Oral 296 Output: Urine 1899 1400 Other: Voiding Method Indwelling Catheter Indwelling Catheter # Bowel Movements 4 3 - Labs CBC & Chem 7: 07/10/21 07:01 07/10/21 07:01 Labs: Abnormal Lab Results - Last 24 Hours (Table) 07/09/21 07/09/21 07/10/21 Range/Units 03:31 03:31 07:01 WBC 12.73 H (4.50-10.00) X 10*3/uL RBC 4.29 L (4.40-5.60) X 10*6/uL Hgb 12.7 L (13.0-17.0) g/dL MCHC 31.4 L (32.0-37.0) g/dL MPV 8.9 L (9.5-12.2) fL Immature Gran # 0.15 H (0.00-0.04) X 10*3/uL Neutrophils # 9.52 H (1.80-7.70) X 10*3/uL Eosinophils # 0.50 H (0.04-0.35) X 10*3/uL BUN 5.5 L 7 L (9.0-27.0) mg/dL BUN/Creatinine Ratio 5.00 L (12.00-20.00) Ratio Glucose 101 H (74-99) mg/dL Microbiology - Last 24 Hours (Table) 07/07/21 18:06 Gram Stain - Preliminary Knee - Right Body Fluid Culture - Preliminary
[2021-07-10 14:39] VITALS: BP 145/83; PULSE 92; TEMP 98.4
--- NOTE | 2021-07-10 14:42 | P.PN ---
Subjective Progress Note Date: 07/10/21 CHIEF COMPLAINT: Colovesical fistula HISTORY OF PRESENT ILLNESS: Patient is postop day #6 status post lower anterior sigmoid resection, mobilization of splenic flexure and partial omentectomy. Patient reports that he is feeling well today. He is having flatus and bowel movements. He is tolerating a low fiber diet. Denies any nausea vomiting. He has been up and ambulating. Afebrile. WBC has normalized from 12.73 denying 0.69 lymphs 11.6 platelets 342. Sodium is 137 potassium 3.8 creatinine 1.10 PHYSICAL EXAM: VITAL SIGNS: Reviewed. GENERAL: Well-developed in no acute distress. HEENT: No sclera icterus. Extraocular movements grossly intact. Moist buccal mucosa. Head is atraumatic, normocephalic. ABDOMEN: Soft. Nondistended. Incision site clean dry and intact. NEUROLOGIC: Alert and oriented. Cranial nerves II through XII grossly intact. ASSESSMENT: 1. Colovesical fistula and active diverticulitis status post lower anterior sigmoid resection, mobilization of splenic flexure and partial omentectomy 2. Right knee effusion followed by orthopedics PLAN: -Discontinue Avila catheter and monitor urine output -Continue low fiber diet -Continue pain medication as needed -Encourage patient to ambulate -Encourage patient to use incentive spirometer -Continue antibiotics -Anticipate discharge tomorrow -DVT prophylaxis subcu heparin and GI prophylaxis Pepcid Physician Core Drier note has been reviewed by physician. Signing provider agrees with the documented findings, assessment, and plan of care. I have personally seen and examined the patient, reviewed the NURSING SCHEDULER /PAs history, exam and MDM and agree with the assessment and plan as written. Based on total visit time, I have performed more than 50% of the visit. As above: Patient doing well today. He would like to go home. He has voided. Bowel movement remain loose. May discharge. Follow-up one week. Objective - Vital Signs Vital signs: Vital Signs Temp 98.4 F 07/10/21 14:00 Pulse 92 07/10/21 14:00 Resp 16 07/10/21 14:00 BP 145/83 07/10/21 14:00 Pulse Ox 98 07/10/21 14:00 Intake & Output 07/09/21 07/10/21 07/10/21 18:59 06:59 18:59 Intake Total 592 Output Total 1900 1400 Balance -1900 -1400 592 Weight 106 kg Intake: Oral 592 Output: Urine 1899 1400 Other: Voiding Method Indwelling Catheter Indwelling Catheter Indwelling Catheter # Bowel Movements 4 3 - Labs CBC & Chem 7: 07/10/21 07:01 07/10/21 07:01 Labs: Abnormal Lab Results - Last 24 Hours (Table) 07/10/21 07/10/21 Range/Units 07:01 07:01 RBC 3.96 L (4.40-5.60) X 10*6/uL Hgb 11.6 L (13.0-17.0) g/dL Hct 36.6 L (39.6-50.0) % MCHC 31.7 L (32.0-37.0) g/dL MPV 8.6 L (9.5-12.2) fL Immature Gran # 0.15 H (0.00-0.04) X 10*3/uL Eosinophils # 0.44 H (0.04-0.35) X 10*3/uL BUN 7 L (9-20) mg/dL Glucose 101 H (74-99) mg/dL Microbiology - Last 24 Hours (Table) 07/07/21 18:06 Gram Stain - Preliminary Knee - Right Body Fluid Culture - Preliminary
--- NOTE | 2021-07-10 15:19 | P.DS ---
Providers Date of admission: 07/04/21 09:40 Expected date of discharge: 07/10/21 Attending physician: Anthony Celeste Consults: 07/04/21 15:46 Consult Physician Routine Consulting Provider: Dinesh Velázquez Consult Reason/Comments: Medical management Do you want consulting provider notified?: Yes 07/07/21 14:02 Consult Physician Urgent Consulting Provider: Jaxson Onofre Consult Reason/Comments: right knee fluid collection, pain Do you want consulting provider notified?: Yes Primary care physician: Xi Bravo Hospital Course: Discharge diagnosis 1. Colovesical fistula and active diverticulitis status post lower anterior sigmoid resection, mobilization of splenic flexure and partial omentectomy 2. Right knee effusion. Improved. Seen by orthopedics Hospital course This is a 61-year-old male with a history of colovesical fistula and active diverticulitis. He is status post lower anterior sigmoid resection, mobilization of splenic flexure and partial omentectomy. Patient tolerated surgery well. His pain is controlled. He has been up and ambulating. He is having bowel movements. He is tolerating diet. He is urinating without difficulty. He's afebrile. His his incision site is clean dry and intact. He is stable for discharge. Please refer to chart for any further details. Physician Anvilsmith note has been reviewed by physician. Signing provider agrees with the documented findings, assessment, and plan of care. Patient Condition at Discharge: Stable Plan - Discharge Summary Discharge Rx Participant: Yes New Discharge Prescriptions: New HYDROcodone/APAP 5-325MG [[place] 5-325] 1 tab PO Q6HR PRN 3 Days #12 tab PRN Reason: Pain Discontinued Acetaminophen [Tylenol Extra Strength] 1,000 mg PO Q8HR PRN PRN Reason: Pain Etodolac [Lodine] 200 mg PO DAILY Discharge Medication List HYDROcodone/APAP 5-325MG [[place] 5-325] 1 tab PO Q6HR PRN 3 Days #12 tab 07/10/21 [Rx] Follow up Appointment(s)/Referral(s): Anthony Celeste MD [Medical Doctor] - [address] [facility], [NON-STAFF] - ([facility] will call you to schedule your in home nursing visits. ) Activity/Diet/Wound Care/Special Instructions: No driving while taking [place] No lifting over 10 pounds You may shower. No soaking or tub baths for 2 weeks Very light activity until you are reevaluated at your follow up appointment with your surgeon Discharge Disposition: HOME WITH HOME HEALTH SERVICES
[2021-07-10] MEDS: D5-0.9% NACL WITH KCL 20 MEQ/L 1,000 ML IV SCH (16:17)
== END 2021-07-10 19:05 | disposition home health service (06) | DRG 674 ==
LOC: 2ORMAIN 09:40 → 4SSUR 16:37
PROVIDERS: ADMIT Surgery; ATTEND Surgery
PROC: 0DBU0ZZ Excision of Omentum, Open Approach (ICD-10-PCS; 2021-07-04)
PROC: 0DTN0ZZ Resection of Sigmoid Colon, Open Approach (ICD-10-PCS; principal; 2021-07-04 11:35)
DX: N32.1 Vesicointestinal fistula (principal); K57.92 Diverticulitis of intestine, part unspecified, without perforation or abscess without bleeding; E87.1 Hypo-osmolality and hyponatremia; D72.829 Elevated white blood cell count, unspecified; K80.20 Calculus of gallbladder without cholecystitis without obstruction; K76.0 Fatty (change of) liver, not elsewhere classified; M17.11 Unilateral primary osteoarthritis, right knee; N40.0 Benign prostatic hyperplasia without lower urinary tract symptoms; Z87.891 Personal history of nicotine dependence; Z96.1 Presence of intraocular lens
CPT/HCPCS: 80048; 84550; 85025; 85610; 85730; 86850; 86900; 86901; 87070; 87205; 88307; 89050; 89060; 94640

== ENCOUNTER 2021-10-12 19:00 | Emergency (ER) | payer BC ==
[2021-10-12 19:12] VITALS: BP 144/92; TEMP 98.1
--- NOTE | 2021-10-12 21:04 | ED ---
General Adult HPI - General Chief complaint: Shortness of Breath Stated complaint: Covid + low O2 Time Seen by Provider: 10/12/21 19:25 Source: patient Mode of arrival: ambulatory Limitations: no limitations - History of Present Illness Initial comments: Patient is a 61-year-old male who presents to the emergency department for evaluation of low oxygen saturation. Patient states he has been experiencing upper respiratory symptoms for the past couple days and went to urgent care today for a COVID-19 test which was positive. Patient states his oxygen saturation at the urgent care was 88% so they sent him to the emergency department however patient feels that the pulse ox was old looking and does not feel that it was accurately measuring his oxygen saturation. States he feels well besides congestion and headache. Patient denies shortness of breath and chest pain. Denies fever, chills, abdominal pain, and other concerns. - Related Data Home Medications Medication Instructions Recorded Confirmed Guaifen/Phenyleph/Acetaminophn 1 tab PO Q8H PRN 10/12/21 10/12/21 [Tylenol Sinus Severe Caplet] Previous Rx's Medication Instructions Recorded Fluticasone Nasal [place] [Flonase 2 spray EA NOSTRIL DAILY #16 gm 10/12/21 Nasal [place]] Allergies Allergy/AdvReac Type Severity Reaction Status Date / Time No Known Allergies Allergy Verified 10/12/21 21:12 Review of Systems ROS Statement: Those systems with pertinent positive or pertinent negative responses have been documented in the HPI. ROS Other: All systems not noted in ROS Statement are negative. Past Medical History Past Medical History: No Reported History Additional Past Medical History / Comment(s): ECZEMA. 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 Past Anesthesia/Blood Transfusion Reactions: No Reported Reaction Past Psychological History: No Psychological Hx Reported Smoking Status: Former smoker Past Alcohol Use History: None Reported Past Drug Use History: None Reported - Past Family History Mother Family Medical History: No Reported History General Exam Limitations: no limitations General appearance: alert, in no apparent distress Head exam: Present: atraumatic, normocephalic, normal inspection Eye exam: Present: normal appearance, PERRL, EOMI. Absent: scleral icterus, conjunctival injection, periorbital swelling Respiratory exam: Present: normal lung sounds bilaterally. Absent: respiratory distress, wheezes, rales, rhonchi, stridor Cardiovascular Exam: Present: regular rate, normal rhythm, normal heart sounds. Absent: systolic murmur, diastolic murmur, rubs, gallop, clicks GI/Abdominal exam: Present: soft, normal bowel sounds. Absent: distended, tenderness, guarding, rebound, rigid Neurological exam: Present: alert, oriented X3, CN II-XII intact Psychiatric exam: Present: normal affect, normal mood Skin exam: Present: warm, dry, intact, normal color. Absent: rash Course Vital Signs 10/12/21 10/12/21 10/12/21 19:08 20:04 21:26 Temperature 98.1 F Pulse Rate 121 H 116 H 100 Respiratory 20 18 Rate Blood Pressure 144/92 O2 Sat by Pulse 97 96 97 Oximetry Medical Decision Making - Medical Decision Making This 61-year-old male who presents for evaluation of low oxygen saturation. Thorough history and examination were performed. Patient is well-appearing. Vital stable. Oxygen saturation is 97% on room air. Afebrile. No chest pain or shortness of breath. I did offer patient chest x-ray however he declines. Patient would like antibody treatment. COVID-19 is detected. Unfortunately we do not have antibodies available Oxygen saturation was monitored closely during the patient's emergency stay. There was no hypoxia or signs of respiratory distress. Patient will be discharged with outpatient prescription for Paxlovid. There are no medication interactions. Return parameters discussed. He verbalizes understanding. Dr. Palacio is my attending. - Lab Data Lab Results 10/12/21 Range/Units 20:04 Coronavirus (PCR) Detected A (Not Detectd) Disposition Clinical Impression: COVID-19 Disposition: HOME SELF-CARE Condition: Good Instructions (If sedation given, give patient instructions): COVID-19 (Coronavirus Disease 2019) (ED) Additional Instructions: Take prescription to pharmacy antibodytreatment. Quarantine at home for 5 days. Return to the emergency department if you experience new, concerning, or worsening symptoms. Prescriptions: Fluticasone Nasal [place] [Flonase Nasal [place]] 2 spray EA NOSTRIL DAILY #16 gm Is patient prescribed a controlled substance at d/c from ED?: No Referrals: Lawrence Layne MD [Primary Care Provider] - 1-2 days Time of Disposition: 21:04
[2021-10-12 21:26] VITALS: PULSE 100; RESP 18
== END 2021-10-12 21:27 | disposition home or self-care (01) ==
LOC: EC 19:00
DX: U07.1 COVID-19 (principal); Z87.891 Personal history of nicotine dependence
CPT/HCPCS: 87635; 99284

== ENCOUNTER → 2024-02-01 | Outpatient (CLI) | payer BC ==
--- NOTE | 2024-02-01 13:32 | US ---
EXAMINATION TYPE: US carotid duplex BILAT DATE OF EXAM: 02/01/2024 COMPARISON: NONE CLINICAL INDICATION: Male, 63 years old with history of R42 DIZZINESS GIDDINESS; Patient states blurr ed vision x 4 weeks ago for 15 minutes. TECHNIQUE: Grayscale, color Doppler and spectral Doppler evaluation of the bilateral carotid systems and vertebral arteries. Indirect Doppler criteria was utilized. FINDINGS: EXAM MEASUREMENTS: RIGHT: Peak Systolic Velocity (PSV) cm/sec ----- Right CCA: 50.5 ----- Right ICA: 148.0 ----- Right ECA: 416.0 ICA/CCA ratio: 2.9 RIGHT: End Diastole cm/sec ----- Right CCA: 12.4 ----- Right ICA: 32.8 ----- Right ECA: 9.8 LEFT: Peak Systolic Velocity (PSV) cm/sec ----- Left CCA: 107.0 ----- Left ICA: 143.0 ----- Left ECA: 118.0 ICA/CCA ratio: 1.3 LEFT: End Diastole cm/sec ----- Left CCA: 21.3 ----- Left ICA: 33.5 ----- Left ECA: 10.9 VERTEBRALS (direction of flow): Right Vertebral: Antegrade Left Vertebral: Antegrade Rhythm: Normal [employer] NOTES: Bilateral wall thickening. Elevated right ECA velocities. Plaque in bilateral bu lbs. Color Doppler imaging shows patency with blood flow throughout the carotid artery. Spectral waveforms are within normal limits. IMPRESSION: Right: Approximately 50-69% stenosis at the origin of the right internal carotid artery. At least mil d stenosis of the origin of the right external carotid artery. Left: Less than 50% stenosis at the origin of the left internal carotid artery. Criteria for Assigning % of Stenosis / Diameter reduction (Estimation based on the indirect measurements of the internal carotid artery velocities (ICA PSV). 1. Normal (no stenosis)=ICA PSV < 125 cm/s: ratio < 2.0: ICA EDV<40 cm/s. 2. Less than 50% stenosis=ICA PSV < 125 cm/s: ratio < 2.0: ICA EDV<40 cm/s. 3. 50 to 69% stenosis=ICA PSV of 125 to 230 cm/s: ration 2.0 ? 4.0: ICA EDV 40-100 cm/s. 4. Greater than 70% stenosis to near occlusion= ICA PSV > 230 cm/s: ratio > 4.0: ICA EDV > 100 cm/s. 5. Near occlusion= ICA PSV velocities may be low or undetectable: variable ratio and ICA EDV. 6. Total occlusion=unable to detect flow. [facility], , 02/01/2024 1:29 PM
--- NOTE | 2024-02-02 07:20 | CA ---
Transthoracic Echo Report Name: Ezequiel Dunlap Age: 63 Gender: M : 1960 Exam Date: 02/01/2024 13:59 Exam Location: [place] [facility] Ht (in): 75 Wt (lb): 250 Ordering Physician: Aldo Bullock DO Attending/Referring Phys: Prabha Cotter PAC [employer] Manager Jaquelin Pedraza RDCS Procedure CPT: Indications: R42 Cardiac Hx: Technical Quality: Fair Contrast 1: Total Dose (mL): Contrast 2: Total Dose (mL): MEASUREMENTS (Male / Female) Normal Values 2D ECHO LV Diastolic Diameter PLAX 5.1 cm 4.2 - 5.9 / 3.9 - 5.3 cm LV Systolic Diameter PLAX 3.4 cm IVS Diastolic Thickness 0.9 cm 0.6 - 1.0 / 0.6 - 0.9 cm LVPW Diastolic Thickness 1.1 cm 0.6 - 1.0 / 0.6 - 0.9 cm LV Relative Wall Thickness 0.4 LVOT Diameter 2.3 cm Aortic Root Diameter 3.5 cm LV Diastolic Volume MOD BP 114.8 cm??? 67 - 155 / 56 - 104 cm??? LV Systolic Volume MOD BP 50.7 cm??? 22 - 58 / 19 - 49 cm??? LV Ejection Fraction MOD BP 55.8 % >= 55 % LV Cardiac Index MOD BP 1735.1 cm???/min???m??? LV Diastolic Volume MOD 4C 115.9 cm??? LV Systolic Volume MOD 4C 49.5 cm??? LV Ejection Fraction MOD 4C 57.3 % LV Cardiac Index MOD 4C 1796.2 cm???/min???m??? LV Diastolic Length 4C 9.0 cm LV Systolic Length 4C 7.5 cm LV Diastolic Volume MOD 2C 109.4 cm??? LV Systolic Volume MOD 2C 50.3 cm??? LV Ejection Fraction MOD 2C 54.1 % LV Cardiac Index MOD 2C 1600.1 cm???/min???m??? LV Diastolic Length 2C 9.4 cm LV Systolic Length 2C 7.7 cm LA Volume 59.3 cm??? 18 - 58 / 22 - 52 cm??? LA Volume Index 24.0 cm???/m??? 16 - 28 cm???/m??? Ascending Aorta Diameter 3.5 cm DOPPLER AV Peak Velocity 190.9 cm/s AV Peak Gradient 14.6 mmHg AV Mean Velocity 139.7 cm/s AV Mean Gradient 8.6 mmHg AV Velocity Time Integral 36.1 cm LVOT Peak Velocity 133.0 cm/s LVOT Peak Gradient 7.1 mmHg LVOT Velocity Time Integral 24.6 cm LVOT Stroke Volume 103.3 cm??? LVOT Stroke Volume Index 42.8 ml/m??? LVOT Cardiac Index 2795.8 cm???/min???m??? AV Area Cont Eq vti 2.9 cm??? AV Area Cont Eq pk 2.9 cm??? MV Area PHT 3.3 cm??? Mitral E Point Velocity 77.0 cm/s Mitral A Point Velocity 114.8 cm/s Mitral E to A Ratio 0.7 MV Deceleration Time 226.9 ms TR Peak Velocity 222.4 cm/s TR Peak Gradient 19.8 mmHg Right Atrial Pressure 10.0 mmHg Pulmonary Artery Systolic Pressu 29.8 mmHg Right Ventricular Systolic Press 29.8 mmHg PV Peak Velocity 84.4 cm/s PV Peak Gradient 2.8 mmHg FINDINGS Left Ventricle Left ventricular ejection fraction is estimated at 55-60 %. Left ventricular cavity size normal. Left ventricular wall thickness normal. No obvious regional wall motion abnormalities. Right Ventricle Normal right ventricular size and function. Right ventricular systolic pressure within normal limits. Right Atrium Normal right atrial size. Left Atrium Mildly increased left atrial volume. Mitral Valve Structurally normal mitral valve. No evidence for mitral valve prolapse. No mitral stenosis. Mild mitral regurgitation.mitral annular calcification. Aortic Valve No aortic valve stenosis or regurgitation.aortic valve sclerosis. Tricuspid Valve Structurally normal tricuspid valve. No tricuspid stenosis. Mild tricuspid regurgitation. Pulmonic Valve Pulmonic valve not well visualized. No pulmonic stenosis. No pulmonic regurgitation. Pericardium No pericardial effusion. Aorta Normal size aortic root and proximal ascending aorta. CONCLUSIONS 1. Normal left ventricular size and systolic function 2. Mild mitral and tricuspid regurgitation with no evidence of pulmonary hypertension Previewed by: Dr. Hazel Berry MD (Electronically Signed) Final Date: 02 February 2024 07:19
== END | disposition home or self-care (01) ==
LOC: RADUSWWP 12:49
PROVIDERS: ATTEND Family Medicine
DX: I65.23 Occlusion and stenosis of bilateral carotid arteries (principal); H53.8 Other visual disturbances; R42 Dizziness and giddiness
CPT/HCPCS: 93306; 93880